=== PATIENT | female | born 1985 | race Caucasian/White ===

== ENCOUNTER 2019-11-30 17:24 | Emergency (ER) | payer MEDICAID, SELFPAY ==
[2019-11-30 17:34] VITALS: BP 129/72; PULSE 74; RESP 14; TEMP 36.5; O2SAT 100; BMI 21.5
--- NOTE | 2019-11-30 17:46 | ED_ITS ---
HPI - General: Chief complaint: Vaginal Bleeding Stated complaint: 4-6 WEEKS PREG, BLEEDING/CRAMPING Time Seen by Provider: 11/30/19 17:45 History of Present Illness: HPI Narrative: Patient is a ,2 34-year-old female is approximately 6 weeks comes with vaginal bleeding and cramping. Patient says symptoms started today. She felt some abdominal cramping and then a gush feeling from vagina. She checked her underwear and found that she had bright red blood. She then is put a heavy pad in and says she has not went through the pad yet today. Denies any passing of clots. She describes the abdominal cramping as episodic Glenn Cortes-like contractions. Denies any fever, chills or bladder symptoms. Associated symptoms: Deny abdominal pain, dysuria, headache(s), nausea or vomiting Review of Systems Const: Denies: fever(s), chills or fatigue Eyes: Denies: change in vision or eye discomfort ENMT: Denies: throat pain, odynophagia, nasal discharge or nasal congestion Card: Denies: chest pain, palpitations, edema, swelling of feet/ankles, dyspnea on exertion or orthopnea Resp: Denies: dyspnea, productive cough or non-productive cough GI: Denies: abdominal pain, nausea, vomiting, diarrhea, constipation or hematochezia : Reports: vaginal bleeding and pelvic pain (contraction like pain); Denies: flank pain, dysuria or hematuria Musc: Denies: neck pain, back pain or extremity swelling Skin/Breast: Denies: rash or new lesions Neuro: Denies: headache(s), numbness in extremities or weakness in extremities Physical Exam Const: COMMON NORMALS: no acute distress, patient oriented x3 and alert GENERAL APPEARANCE: cooperative and comfortable HENMT: COMMON NORMALS: normocephalic HEAD & SCALP: normocephalic MOUTH: Normal oral and palatal mucosa present THROAT: posterior oropharynx normal and uvula midline Eye: COMMON NORMALS: Equal, round and reactive pupils present PUPIL: Yes Equal, round and reactive pupils present Neck/C-Spine: COMMON NORMALS: supple GENERAL: Yes normal visual inspection Resp: COMMON NORMALS: normal respiratory effort, No retractions, No use of accessory muscles and clear to auscultation bilaterally AUSCULTATION: clear to auscultation bilaterally Cardio: COMMON NORMALS: regular rate, regular rhythm, S1 normal heart sound present, S2 normal heart sound present, No gallops present (Cardio), No clicks present (Cardio), No murmurs present (Cardio) and Peripheral pulses 2+ throughout RATE: regular rate RHYTHM: regular rhythm HEART SOUNDS: S1 normal heart sound present and S2 normal heart sound present PERIPHERAL PULSES: Peripheral pulses 2+ throughout GI: COMMON NORMALS: Normal to inspection, nondistended, normoactive bowel sounds present, Soft to palpation, non-tender and no masses PALPATION: Yes Soft to palpation and Yes Tenderness to palpation present (GI) Details: other (lower abdominal/pelvic tenderness-mild) : COMMON NORMALS: Yes no CVA tenderness BLADDER/KIDNEY EXAM: Yes no CVA tenderness Back/Pelvis: COMMON NORMALS: no CVA tenderness Extremity: COMMON NORMALS: normal to inspection and no pedal edema Neuro: COMMON NORMALS: patient oriented x3 and moves all extremities SENSORIUM/ORIENTATION: Yes alert Skin: GENERAL SKIN EXAM: dry skin Course Vital Signs: Vital signs: Vital Signs Temperature 98.0 F 11/30/19 21:11 Pulse Rate 78 11/30/19 21:11 Respiratory Rate 18 11/30/19 21:11 Blood Pressure 128/64 11/30/19 21:11 Pulse Oximetry 98 11/30/19 21:11 MDM - OB/Uterine Contractions MDM Narrative: Medical decision making narrative: Patient is a ,2 34-year-old female says she is approximately 6 weeks comes to the ED with vaginal bleeding abdominal cramping. hCG quant was 60,621. White blood cell count 10.3. Rh type negative. Ultrasound report showed-industrial manufacturing technician performed transvaginal and said cervix was closed. Single live intrauterine fetus. Estimated gestational age by ultrasound is 10 weeks and 6 days. Patient was given a RhoGam shot here in the ED. Patient has a scheduled appointment with Dr. Mayes in December, but I told her to contact his office on Monday morning to discuss ED visit and vaginal bleeding. Return to ED precautions given. Patient understood and agreed with plan. Lab Data: Attestation: I reviewed the patient's lab results. Labs: Lab Results 11/30/19 11/30/19 11/30/19 Range/Units 18:04 18:04 18:04 WBC 10.3 H (4.0-10.0) 10^3/ uL RBC 4.51 (4.1-5.3) 10^6/u L Hgb 13.9 (11.5-15.3) g/dL Hct 41.6 (37.0-47.0) % MCV 92.2 (81-99) fL MCH 30.8 (28.0-34.0) pg MCHC 33.4 (30.0-36.0) g/dL RDW 13.3 (12.1-15.1) % Plt Count 249 (130-400) 10^3/c mm MPV 9.5 (7.4-10.4) fL Neut % (Auto) 74.5 % Lymph % (Auto) 18.7 % Grand % (Auto) 4.6 % Eos % (Auto) 1.5 % Baso % (Auto) 0.4 % Neut # (Auto) 7.70 (1.8-7.7) 10^3/u L Lymph # (Auto) 1.9 (0.8-4.8) 10^3/u L Grand # (Auto) 0.5 (0.2-0.9) 10^3/u L Eos # (Auto) 0.2 (0.0-0.8) 10^3/u L Baso # (Auto) 0.0 (0.0-0.1) 10^3/u L Nucleated RBC % (a uto) 0 % Nucleated RBCs # 0.0 /100WBC Sodium 134 L (136-145) mmol/L Potassium 3.2 L (3.5-5.1) mmol/L Chloride 99 (98-107) mmol/L Carbon Dioxide 24 (22-29) mmol/L Anion Gap 14.2 (5-19) BUN 10 (6-20) mg/dL Creatinine 0.6 (0.5-0.9) mg/dL GFR Calculation 115.9 (90-130) mL/min Glucose 97 (65-115) mg/dL Calculated Osmolal ity 277 L (285-295) mOsm/k g Calcium 8.7 (8.5-10.5) mg/dL Total Bilirubin 0.2 (0.15-1.2) mg/dL AST 17 (0-32) U/L ALT 18 (0-33) U/L Alkaline Phosphata se 47 (35-105) IU/L Total Protein 7.0 (6.6-8.7) g/dL Albumin 4.6 (3.5-5.2) g/dL Globulin 2.4 (1.3-4.6) g/dL Ser , [place] 99187.00 mIU/mL Urine Color (Yellow) Urine Appearance (CLEAR) Urine pH (5-7) Ur Specific Gravit y (1.005-1.030) Urine Protein (Negative) Urine Glucose (UA) (Normal) Urine Ketones (Negative) Urine Blood (Negative) Urine Nitrate (Negative) Urine Bilirubin (Negative) Urine Urobilinogen (Negative) mg/dL Ur Leukocyte Lucille ase (Negative) Urine RBC (0-2) /hpf Urine WBC (0-5) /hpf Ur Squamous Epith Cells (0-5) /hpf Amorphous Sediment Urine Bacteria (NONE) /hpf Urine Mucus /hpf Blood Type A Negative Rho(D) Type Negative Antibody Screen Negative 11/30/19 Range/Units 18:30 WBC (4.0-10.0) 10^3/ uL RBC (4.1-5.3) 10^6/u L Hgb (11.5-15.3) g/dL Hct (37.0-47.0) % MCV (81-99) fL MCH (28.0-34.0) pg MCHC (30.0-36.0) g/dL RDW (12.1-15.1) % Plt Count (130-400) 10^3/c mm MPV (7.4-10.4) fL Neut % (Auto) % Lymph % (Auto) % Grand % (Auto) % Eos % (Auto) % Baso % (Auto) % Neut # (Auto) (1.8-7.7) 10^3/u L Lymph # (Auto) (0.8-4.8) 10^3/u L Grand # (Auto) (0.2-0.9) 10^3/u L Eos # (Auto) (0.0-0.8) 10^3/u L Baso # (Auto) (0.0-0.1) 10^3/u L Nucleated RBC % (a uto) % Nucleated RBCs # /100WBC Sodium (136-145) mmol/L Potassium (3.5-5.1) mmol/L Chloride (98-107) mmol/L Carbon Dioxide (22-29) mmol/L Anion Gap (5-19) BUN (6-20) mg/dL Creatinine (0.5-0.9) mg/dL GFR Calculation (90-130) mL/min Glucose (65-115) mg/dL Calculated Osmolal ity (285-295) mOsm/k g Calcium (8.5-10.5) mg/dL Total Bilirubin (0.15-1.2) mg/dL AST (0-32) U/L ALT (0-33) U/L Alkaline Phosphata se (35-105) IU/L Total Protein (6.6-8.7) g/dL Albumin (3.5-5.2) g/dL Globulin (1.3-4.6) g/dL Ser , Gini i-Qnt mIU/mL Urine Color Yellow (Yellow) Urine Appearance Clear (CLEAR) Urine pH 6.5 (5-7) Ur Specific Gravit y 1.015 (1.005-1.030) Urine Protein Neg (Negative) Urine Glucose (UA) Norm (Normal) Urine Ketones Negative (Negative) Urine Blood 2+ H (Negative) Urine Nitrate Negative (Negative) Urine Bilirubin Neg (Negative) Urine Urobilinogen Norm (Negative) mg/dL Ur Leukocyte Lucille ase Negative (Negative) Urine RBC 25-40 H (0-2) /hpf Urine WBC Rare (0-5) /hpf Ur Squamous Epith Cells 0-4 H (0-5) /hpf Amorphous Sediment Not Reportable Urine Bacteria Trace (NONE) /hpf Urine Mucus 1+ /hpf Blood Type Rho(D) Type Antibody Screen Imaging Data^: US OB: Attestation: I personally reviewed and interpreted this imaging study as follows: My impression: Ultrasound prelim report.--Cervix is closed and is an intrauterine that appears healthy with heart rate around 150. Radiologist's impression: [address] [address] Ultrasound Report Signed Patient: Berna Wilks Unit #: [id number] : 1985 Age/Sex: 34 / F ADM Date: 11/30/19 Loc: ER Room/Bed: Attending Dr: Ordering Provider/Ordering MD: David Rivas Date of Service: 11/30/19 Procedure(s): US OB lmt with transvaginal Accession Number(s): [id number] Report Number: [id number] PROCEDURE INFORMATION: Exam: US , Limited Exam date and time: 11/30/2019 6:55 PM Age: 34 years old Clinical indication: Lmp or gestational age (in weeks): 10 w 6 day; Other: Bleeding; ; Patient HX: Rh neg; Additional info: Preg w/ vaginal bleeding and cramping TECHNIQUE: Imaging protocol: Real-time ultrasound of the maternal uterus with image documentation. Exam focused on the clinical indication. COMPARISON: US OB Limited [id number] 09/29/2018 2:09 PM FINDINGS: Gestation: Intrauterine gestation. heart rate: heart rate is 153 bpm. BIOMETRY: Gestational age (AUA): EGA based on ultrasound is 10 weeks and 6 days. Estimated due date (AUA): [place]-rump length is 4.0 cm with an SARAN of 06/21/2020. US/US OB lmt with transvaginal IMPRESSION: Single live intrauterine fetus. Estimated gestational age by ultrasound is 10 weeks and 6 days. Dictated By: Cary Medina MD Signed By: Cary Medina MD Signed Date/Time: 11/30/191909 DD/ 08 Discharge Plan Discharge Patient Disposition: Home Clinical Impression: Vaginal bleeding in Condition: Stable Discharge Orders: Discharge Order (Routine); Ordered 11/30/19 Ordered By: David Rivas Referrals: Jordan Mayes MD [Family Provider] - Discharge Diet: Regular Discharge Activity: Increase activity as tolerated Patient Instructions: (ED), Diet (GEN) Activity Restrictions/Additional Instructions: Follow-up with Dr. Mayes within the next week for reevaluation. Return to the ER or your medical provider if condition worsens. Please read and understand discharge instructions. If any questions, please ask. Discharge Date/Time: 11/30/19 21:11 Coding Level of Care Code ED Dramatic Reader for Chg Fwd Exam Comprehensive
--- NOTE | 2019-11-30 17:58 | USR_ITS ---
PROCEDURE INFORMATION: Exam: US , Limited Exam date and time: 11/30/2019 6:55 PM Age: 34 years old Clinical indication: Lmp or gestational age (in weeks): 10 w 6 day; Other: Bleeding; ; Patient HX: Rh neg; Additional info: Preg w/ vaginal bleeding and cramping TECHNIQUE: Imaging protocol: Real-time ultrasound of the maternal uterus with image documentation. Exam focused on the clinical indication. COMPARISON: US OB Limited [id number] 09/29/2018 2:09 PM FINDINGS: Gestation: Intrauterine gestation. heart rate: heart rate is 153 bpm. BIOMETRY: Gestational age (AUA): EGA based on ultrasound is 10 weeks and 6 days. Estimated due date (AUA): [place]-rump length is 4.0 cm with an SARAN of 06/21/2020. US/US OB lmt with transvaginal IMPRESSION: Single live intrauterine fetus. Estimated gestational age by ultrasound is 10 weeks and 6 days.
[2019-11-30 18:25] LABS: Basophils % 0.4 %; Eosinophils # 0.2 10^3/uL (0.0-0.8); Eosinophils % 1.5 %; Hematocrit 41.6 % (37.0-47.0); Hemoglobin 13.9 g/dL (11.5-15.3); Lymphocytes # 1.9 10^3/uL (0.8-4.8); Lymphocytes % 18.7 %; Mean Corpuscular HGB Conc 33.4 g/dL (30.0-36.0); Mean Corpuscular Hemoglobin 30.8 pg (28.0-34.0); Mean Corpuscular Volume 92.2 fL (81-99); Mean Platelet Volume 9.5 fL (7.4-10.4); Monocytes # 0.5 10^3/uL (0.2-0.9); Monocytes % 4.6 %; Neutrophils % 74.5 %; Nucleated Red Blood Cells % 0 %; Platelet Count 249 10^3/cmm (130-400); Red Blood Count 4.51 10^6/uL (4.1-5.3); Red Cell Distribution Width 13.3 % (12.1-15.1); White Blood Count 10.3 10^3/uL (4.0-10.0)
[2019-11-30] MEDS: sodium chloride 0.9% 1,000 ML 999 ML IV (18:41)
[2019-11-30 18:43] VITALS: RESP 18
[2019-11-30 19:04] LABS: Alanine Aminotransferase 18 U/L (0-33); Albumin Level 4.6 g/dL (3.5-5.2); Alkaline Phosphatase 47 IU/L (35-105); Anion Gap 14.2 (5-19); Aspartate Amino Transferase 17 U/L (0-32); Blood Urea Nitrogen 10 mg/dL (6-20); Calcium 8.7 mg/dL (8.5-10.5); Carbon Dioxide 24 mmol/L (22-29); Chloride 99 mmol/L (98-107); Globulin 2.4 g/dL (1.3-4.6); Glomerular Filtration Rate 115.9 mL/min (90-130); Glucose 97 mg/dL (65-115); Osmolality Calculated 277 mOsm/kg (285-295); Potassium 3.2 mmol/L (3.5-5.1); Sodium 134 mmol/L (136-145); Total Bilirubin 0.2 mg/dL (0.15-1.2)
[2019-11-30 19:20] LABS: Bilirubin Urine Neg (Negative); Blood Urine 2+ (Negative); Glucose Urine UA Norm (Normal); Ketones Urine Negative (Negative); Leukocyte Esterase Urine Negative (Negative); Nitrate Urine Negative (Negative); Protein Urine Neg (Negative); Specific Gravity, Urine 1.015 (1.005-1.030); Urine Appearance Clear (CLEAR); Urine Color Yellow (Yellow); Urobilinogen Urine Norm (Negative); pH Urine 6.5 (5-7)
[2019-11-30 19:29] LABS: RBC Urine 25-40 /hpf (0-2); Squamous Epithelial Cell Urine 0-4 /hpf (0-5); WBC Urine RARE /hpf (0-5)
[2019-11-30 19:30] LABS: Add Urine Culture? Yes; Bacteria Urine TRACE /hpf; Mucus Urine 1+ /hpf
[2019-11-30 21:08] VITALS: BP 128/64; PULSE 78; RESP 18; TEMP 36.7; O2SAT 98
[2019-11-30 21:11] VITALS: BP 128/64; PULSE 78; RESP 18; TEMP 36.7; O2SAT 98
== END 2019-11-30 21:11 | disposition home or self-care (01) ==
PROVIDERS: Emergency Provider Physician Assistant; Family Provider Family Medicine
DX: O46.91 Antepartum hemorrhage, unspecified, first trimester (principal); Z3A.10 10 weeks gestation of pregnancy
CPT/HCPCS: 12345; 36430; 76815; 76817; 80053; 81001; 84702; 85025; 86850; 86900; 87086; 90384; 96360; 99283; J7030

== ENCOUNTER 2020-01-12 19:26 | Emergency (ER) | payer MEDICAID, SELFPAY ==
[2020-01-12 19:33] VITALS: BP 135/98; PULSE 82; RESP 14; TEMP 36.3; O2SAT 100; BMI 21.4
--- NOTE | 2020-01-12 19:40 | W.ED.ABDPA2 ---
HPI - Abdominal Pain General: Chief Complaint: Abdominal Pain Stated Complaint: 3months preg. severe abdominal pain Time Seen by Provider: 01/12/20 19:32 Source: patient Mode of arrival: ambulatory Limitations: no limitations History of Present Illness: HPI narrative: Crystal 34-year-old female is roughly 13 weeks states she been having lower abdominal pain over the last 2 days it is severe tonight. States it is in her left lower quadrant. She denies any vaginal discharge or bleeding. She denies any worsening or improving factors. She had no nausea or vomiting. She denies any right lower quadrant abdominal pain states on her left lower quadrant. MD elicited complaint: abdominal pain Onset (ago): day(s) Pain Consistency: constant Location: LLQ Quality: stabbing Radiation: none Associated Symptoms: Denies chills, dysuria and fever(s) Review of Systems Const: Denies: fever(s), chills, body aches or change in appetite Eyes: Denies: blurry vision or eye discomfort ENMT: Denies: throat pain or dental pain Card: Denies: chest pain Resp: Denies: dyspnea GI: Reports: abdominal pain : Denies: dysuria Musc: Denies: neck pain or back pain Skin/Breast: Denies: rash Neuro: Denies: headache(s) Psych: Denies: depression Dixon/Lymph: Denies: easy bruising All/Imm: Denies: urticaria Physical Exam Const: COMMON NORMALS: patient oriented x3 and healthy appearing GENERAL APPEARANCE: in distress HENMT: COMMON NORMALS: normocephalic and atraumatic HEAD & SCALP: normocephalic and atraumatic Eye: COMMON NORMALS: Equal, round and reactive pupils present and EOMs intact bilaterally PUPIL: Yes Equal, round and reactive pupils present Neck/C-Spine: COMMON NORMALS: full ROM and supple Chest: COMMONS NORMALS: normal inspection of the chest and normal palpation of entire chest wall Resp: COMMON NORMALS: normal respiratory effort, No retractions, No use of accessory muscles and clear to auscultation bilaterally AUSCULTATION: clear to auscultation bilaterally Cardio: COMMON NORMALS: regular rate, regular rhythm and No murmurs present (Cardio) RATE: regular rate RHYTHM: regular rhythm GI: COMMON NORMALS: Normal to inspection, nondistended, normoactive bowel sounds present and no masses PALPATION: Yes Tenderness to palpation present (GI) Details: LLQ and Yes Guarding due to palpation present (GI) OTHER: gravid uterus Extremity: COMMON NORMALS: normal to inspection and full ROM Neuro: COMMON NORMALS: patient oriented x3, moves all extremities and no focal motor deficits Psych: COMMON NORMALS: mental status grossly normal, Normal thought process present and cooperative THOUGHT PROCESS: Normal thought process present Skin: COMMON NORMALS: no rashes or lesions noted and no wounds GENERAL SKIN EXAM: no rashes or lesions noted Course Vital Signs: Vital signs: Vital Signs Temperature 97.3 F L 01/12/20 19:33 Pulse Rate 74 01/12/20 23:06 Respiratory Rate 18 01/12/20 23:06 Blood Pressure 121/75 01/12/20 23:06 Pulse Oximetry 100 01/12/20 23:06 MDM - Abdominal Pain MDM Narrative: Medical decision making narrative: Uma presents here with abdominal pain and ultrasound showed hydronephrosis possibly has a kidney stone she has had a history of kidney stones. We will place her on pain meds along with Reglan. We will have her follow-up with urology with Luis A. She is return if worsening. She understands agrees to plan. Lab Data: Labs: Lab Results 01/12/20 01/12/20 01/12/20 Range/Units 19:45 19:45 23:00 WBC 11.0 H (4.0-10.0) 10^3/ uL RBC 4.21 (4.1-5.3) 10^6/u L Hgb 13.4 (11.5-15.3) g/dL Hct 39.4 (37.0-47.0) % MCV 93.6 (81-99) fL MCH 31.8 (28.0-34.0) pg MCHC 34.0 (30.0-36.0) g/dL RDW 13.5 (12.1-15.1) % Plt Count 227 (130-400) 10^3/c mm MPV 9.8 (7.4-10.4) fL Neut % (Auto) 74.6 % Lymph % (Auto) 16.6 % [place] % (Auto) 6.5 % Eos % (Auto) 1.4 % Baso % (Auto) 0.5 % Neut # (Auto) 8.21 H (1.8-7.7) 10^3/u L Lymph # (Auto) 1.8 (0.8-4.8) 10^3/u L [place] # (Auto) 0.7 (0.2-0.9) 10^3/u L Eos # (Auto) 0.2 (0.0-0.8) 10^3/u L Baso # (Auto) 0.1 (0.0-0.1) 10^3/u L Nucleated RBC % (a uto) 0 % Nucleated RBCs # 0.0 /100WBC Sodium 138 (136-145) mmol/L Potassium 3.8 (3.5-5.1) mmol/L Chloride 101 (98-107) mmol/L Carbon Dioxide 25 (22-29) mmol/L Anion Gap 15.8 (5-19) BUN 13 (6-20) mg/dL Creatinine 0.8 (0.5-0.9) mg/dL GFR Calculation 83.1 L (90-130) mL/min Glucose 72 (65-115) mg/dL Calculated Osmolal ity 285 (285-295) mOsm/k g Calcium 9.3 (8.5-10.5) mg/dL Total Bilirubin 0.2 (0.15-1.2) mg/dL AST 15 (0-32) U/L ALT 15 (0-33) U/L Alkaline Phosphata se 55 (35-105) IU/L Total Protein 7.0 (6.6-8.7) g/dL Albumin 4.2 (3.5-5.2) g/dL Globulin 2.8 (1.3-4.6) g/dL Lipase 29 (13-60) U/L Urine Color Yellow (Yellow) Urine Appearance Clear (CLEAR) Urine pH 7 (5-7) Ur Specific Gravit y 1.005 (1.005-1.030) Urine Protein Neg (Negative) Urine Glucose (UA) Norm (Normal) Urine Ketones 1+ H (Negative) Urine Blood 3+ H (Negative) Urine Nitrate Negative (Negative) Urine Bilirubin Neg (Negative) Urine Urobilinogen Norm (Negative) mg/dL Ur Leukocyte Lucille ase Negative (Negative) Urine RBC 15-25 H (0-2) /hpf Urine WBC 0-4 H (0-5) /hpf Ur Squamous Epith Cells 25-40 H (0-5) /hpf Amorphous Sediment Not Reportable Urine Bacteria Trace (NONE) /hpf Imaging Data ^: US: Radiologist's impression: [address] [address] Ultrasound Report Signed Patient: Berna Wilks Unit #: [id number] : 1985 Age/Sex: 34 / F ADM Date: 01/12/20 Loc: ER Room/Bed: Attending Dr: Ordering Provider/Ordering MD: Soy Cheung MD Date of Service: 01/12/20 Procedure(s): US abdomen complete* [id number] Accession Number(s): [id number] Report Number: [id number] PROCEDURE INFORMATION: Exam: US Abdomen Complete Exam date and time: 01/12/2020 9:09 PM Age: 34 years old Clinical indication: Abdominal pain; ; Additional info: Abd pain TECHNIQUE: Imaging protocol: Real-time ultrasound of the abdomen with image documentation. COMPARISON: US Renal Kidney Structu* [id number] 09/29/2018 1:56 PM FINDINGS: Liver: Normal. No mass. Gallbladder: Normal. No gallstones. There is no gallbladder wall thickening. Common bile duct: Normal. No stones. No dilation. Pancreas: Visualized pancreas is unremarkable. Right kidney: Severe right hydronephrosis and hydroureter without obstructing lesion seen. Left kidney: Mild left kidney hydronephrosis without obstructing lesion seen. Spleen: Normal. No splenomegaly. Aorta: Normal. No aneurysm. Inferior vena cava: Normal. US/US abdomen complete* [id number] IMPRESSION: 1. Severe right hydronephrosis and hydroureter without obstructing lesion seen. 2. Mild left kidney hydronephrosis without obstructing lesion seen. Discharge Plan Discharge Patient Disposition: Home Clinical Impression: Abdominal pain affecting Hydronephrosis Qualifiers: Hydronephrosis type: unspecified Qualified Code(s): N13.30 - Unspecified hydronephrosis Condition: Stable Prescriptions: [place] 5-325 mg tablet 1 tab PO Q6H PRN (Reason: pain) Qty: 14 RF: 0 Reglan 10 mg tablet 10 mg PO Q6H PRN (Reason: nausea and vomiting) Qty: 20 RF: 0 Discharge Orders: Discharge Order (Routine); Ordered 01/13/20 Ordered By: Soy Cheung Referrals: Mariano Gunn MD [Physician] - 1-3 days Discharge Diet: Advance as tolerated Discharge Activity: Resume usual activity Patient Instructions: Abdominal Pain (ED) Coding Level of Care Code ED Principal Statistical Programmer for Chg Fwd Exam Comprehensive
[2020-01-12 19:56] VITALS: RESP 16; O2SAT 99
[2020-01-12] MEDS: HYDROmorphone 1 mg/mL INJ 1 mL IVP (19:56)
[2020-01-12] MEDS: ondansetron 2 mg/ML SDV 2 mL 4 MG IVP (19:56)
[2020-01-12 19:59] LABS: Basophils # 0.1 10^3/uL (0.0-0.1); Basophils % 0.5 %; Eosinophils # 0.2 10^3/uL (0.0-0.8); Eosinophils % 1.4 %; Hematocrit 39.4 % (37.0-47.0); Hemoglobin 13.4 g/dL (11.5-15.3); Lymphocytes # 1.8 10^3/uL (0.8-4.8); Lymphocytes % 16.6 %; Mean Corpuscular Hemoglobin 31.8 pg (28.0-34.0); Mean Corpuscular Volume 93.6 fL (81-99); Mean Platelet Volume 9.8 fL (7.4-10.4); Monocytes # 0.7 10^3/uL (0.2-0.9); Monocytes % 6.5 %; Neutrophils # 8.21 10^3/uL (1.8-7.7); Neutrophils % 74.6 %; Nucleated Red Blood Cells % 0 %; Platelet Count 227 10^3/cmm (130-400); Red Blood Count 4.21 10^6/uL (4.1-5.3); Red Cell Distribution Width 13.5 % (12.1-15.1)
[2020-01-12 20:09] LABS: Alanine Aminotransferase 15 U/L (0-33); Albumin Level 4.2 g/dL (3.5-5.2); Alkaline Phosphatase 55 IU/L (35-105); Anion Gap 15.8 (5-19); Aspartate Amino Transferase 15 U/L (0-32); Blood Urea Nitrogen 13 mg/dL (6-20); Calcium 9.3 mg/dL (8.5-10.5); Carbon Dioxide 25 mmol/L (22-29); Chloride 101 mmol/L (98-107); Creatinine Clr Calc Pharmacy 88.4525; Globulin 2.8 g/dL (1.3-4.6); Glomerular Filtration Rate 83.1 mL/min (90-130); Glucose 72 mg/dL (65-115); Lipase 29 U/L (13-60); Osmolality Calculated 285 mOsm/kg (285-295); Potassium 3.8 mmol/L (3.5-5.1); Sodium 138 mmol/L (136-145); Total Bilirubin 0.2 mg/dL (0.15-1.2)
[2020-01-12 20:58] VITALS: BP 98/50; PULSE 87; RESP 16; O2SAT 99
[2020-01-12] MEDS: sodium chloride 0.9% 1,000 ML 999 ML IV (21:32)
[2020-01-12 21:48] VITALS: BP 107/63; PULSE 78; RESP 16; O2SAT 98
[2020-01-12 23:06] VITALS: BP 121/75; PULSE 74; RESP 18; O2SAT 100
[2020-01-12 23:35] LABS: Add Urine Microscopic? YES; Bilirubin Urine Neg (Negative); Blood Urine 3+ (Negative); Glucose Urine UA Norm (Normal); Ketones Urine 1+ (Negative); Leukocyte Esterase Urine Negative (Negative); Nitrate Urine Negative (Negative); Protein Urine Neg (Negative); Specific Gravity, Urine 1.005 (1.005-1.030); Urine Appearance Clear (CLEAR); Urine Color Yellow (Yellow); Urobilinogen Urine Norm (Negative); pH Urine 7 (5-7)
[2020-01-13 00:14] LABS: Add Urine Culture? No; Bacteria Urine TRACE /hpf; RBC Urine 15-25 /hpf (0-2); Squamous Epithelial Cell Urine 25-40 /hpf (0-5); WBC Urine 0-4 /hpf (0-5)
[2020-01-13 00:16] VITALS: BP 104/57; PULSE 74; RESP 18; O2SAT 96
--- NOTE | 2020-01-13 11:17 | DCPLANNER ---
Addendum entered by Gloria Engle 01/13/20 11:19: Wrong referral was made, the referral was to the office of Dr. Gunn. Patients information will be printed and reviewed, clinic will call patient with appointment information. Original Note: partner alliance manager had message to schedule a follow up appointment for patient with ortho. partner alliance manager called the ortho clinic, spoke with Terri, gave clinic patients information. partner alliance manager was told that patients information would be printed and reviewed. Clinic will call patient with appointment information.
--- NOTE | 2020-01-13 12:06 | DCPLANNER ---
manager mail had message to schedule a follow up appointment for patient with Dr. Gunn. manager mail called the office of Dr. Gunn, spoke with Jessica, gave clinic patients information. manager mail was told that patients information would be printed and reviewed. Clinic will call patient with appointment information.
--- NOTE | 2020-01-15 09:36 | DCPLANNER ---
Patient has a follow up appointment scheduled for Wednesday, January 15, 2020 at 2:[address] Gunn. Clinic will call patient with appointment information.
--- NOTE | 2020-01-24 14:54 | DCPLANNER ---
Patient had a follow up appointment scheduled for 01.15.[address] Gunn - patient did attend appointment.
== END 2020-01-13 00:24 | disposition home or self-care (01) ==
PROVIDERS: Emergency Provider Emergency Medicine
DX: O99.891 Other specified diseases and conditions complicating pregnancy (principal); N13.30 Unspecified hydronephrosis; Z3A.13 13 weeks gestation of pregnancy
CPT/HCPCS: 12345; 76700; 80053; 81001; 83690; 85025; 96361; 96374; 96375; 99283; J1170; J2405; J7030

== ENCOUNTER 2020-03-04 08:08 | Outpatient (CLI) | payer BC, MEDICAID, SELFPAY ==
--- NOTE | 2020-03-04 08:00 | US_ITS ---
WS: [id number] RENAL ULTRASOUND HISTORY: HYDRONEPHROSIS COMPARISON: 01/11/2029 TECHNIQUE: 2-D and color Doppler imaging of the kidney submitted. Right kidney: 14.4 cm x 5.2 cm x 6.7 cm. Enlarged kidney. There is marked dilatation of the renal pelvis. Diffuse thinning of the cortex. Sinc e the study of 07/31/2018 there has been progression of the hydronephrosis and cortical thinning. Left kidney: 11.9 cm x 5.5 cm x 4.9 cm. Normal echogenicity with no hydronephrosis or mass. Aorta: Not visualized. Urinary Bladder: Well-distended bladder. No ureteral jets are identified. US/US renal BI* [id number] IMPRESSION: 1. Severe RIGHT hydronephrosis. Progression of hydronephrosis and cortical thi nning since 09/29/2018. 2. Normal LEFT kidney.
== END 2020-03-04 08:09 | disposition home or self-care (01) ==
LOC: RAD 08:09
PROVIDERS: PCP Family Medicine; Visit Provider Urology
DX: N13.30 Unspecified hydronephrosis (principal)
CPT/HCPCS: 76770; 80048; 81003

== ENCOUNTER 2020-04-21 06:37 | Observation (INO) | payer BC, MEDICAID, SELFPAY ==
[2020-04-20] VITALS (34 sets, daily range): BP systolic 135–154; BP diastolic 71–83; PULSE 77–98; RESP 17–18; TEMP 37–37.1; O2SAT 98–100; BMI 23.2
[2020-04-20] MEDS: morphine 4 mg/mL SDV 1 mL IVP (22:05)
[2020-04-20] MEDS: promethazine 25 mg/mL SDV 1 mL IM (22:06)
--- NOTE | 2020-04-20 22:44 | US_ITS ---
WS: [id number] ULTRASOUND RENAL TECHNIQUE: Ultrasound examination of both kidneys. CLINICAL INFORMATION: LEFT SIDED FLANK PAIN COMPARISON: Ultrasound April 14, 2020 FINDINGS: RIGHT: Echogenicity: Normal. Cortical thickness: cm; Normal. Hydronephrosis: Severe Perinephric fluid: None. Right kidney measures: 13.1 cm x 4.7 cm x 5.7 cm. LEFT: Echogenicity: Normal. Cortical thickness: cm; Normal. Hydronephrosis: Mild Perinephric fluid: None. Left kidney measures: 13.4 cm x 6.0 cm x 5.5 cm. Normal visualized aorta.. Distended bladder. US/US renal BI* [id number] IMPRESSION: 1. Severe right hydronephrosis. Dilated right renal pelvis. 2. Mild left hydronephrosis is new from previous.
[2020-04-20 22:51] LABS: Basophils % 0.2 %; Eosinophils # 0.2 10^3/uL (0.0-0.8); Eosinophils % 0.9 %; Hematocrit 36.2 % (37.0-47.0); Hemoglobin 11.9 g/dL (11.5-15.3); Lymphocytes # 1.4 10^3/uL (0.8-4.8); Lymphocytes % 8.3 %; Mean Corpuscular HGB Conc 32.9 g/dL (30.0-36.0); Mean Corpuscular Hemoglobin 30.7 pg (28.0-34.0); Mean Corpuscular Volume 93.3 fL (81-99); Mean Platelet Volume 10.6 fL (7.4-10.4); Monocytes # 1.1 10^3/uL (0.2-0.9); Monocytes % 6.5 %; Neutrophils # 13.82 10^3/uL (1.8-7.7); Nucleated Red Blood Cells % 0 %; Platelet Count 196 10^3/cmm (130-400); Red Blood Count 3.88 10^6/uL (4.1-5.3); Red Cell Distribution Width 13.8 % (12.1-15.1); White Blood Count 16.7 10^3/uL (4.0-10.0)
[2020-04-20 22:58] LABS: Bilirubin Urine Neg (Negative); Blood Urine 3+ (Negative); Glucose Urine UA Norm (Normal); Ketones Urine Negative (Negative); Nitrate Urine Negative (Negative); Protein Urine Neg (Negative); Specific Gravity, Urine 1.005 (1.005-1.030); Urine Appearance Clear (CLEAR); Urine Color Yellow (Yellow); pH Urine 7 (5-7)
[2020-04-20 22:59] LABS: Add Urine Microscopic? YES; Leukocyte Esterase Urine Trace (Negative); RBC Urine 40-50 /hpf (0-2); Squamous Epithelial Cell Urine 0-4 /hpf (0-5); Urobilinogen Urine Norm (Negative)
[2020-04-20 23:00] LABS: Add Urine Culture? Yes
[2020-04-20] MEDS: sodium chloride 0.9% 1,000 ML 999 ML IV (23:00)
[2020-04-20] MEDS: terbutaline 1 mg/mL INJ 0.25 MG SUBCUT (23:00)
[2020-04-20 23:09] LABS: Alanine Aminotransferase 14 U/L (0-33); Albumin Level 3.7 g/dL (3.5-5.2); Alkaline Phosphatase 98 IU/L (35-105); Blood Urea Nitrogen 8 mg/dL (6-20); Calcium 8.6 mg/dL (8.5-10.5); Carbon Dioxide 22 mmol/L (22-29); Chloride 99 mmol/L (98-107); Globulin 3.4 g/dL (1.3-4.6); Glomerular Filtration Rate 115.9 mL/min (90-130); Glucose 85 mg/dL (65-115); Osmolality Calculated 272 mOsm/kg (285-295); Sodium 132 mmol/L (136-145); Total Bilirubin 0.2 mg/dL (0.15-1.2); Total Protein 7.1 g/dL (6.6-8.7)
[2020-04-20 23:15] LABS: Anion Gap 15.2 (5-19); Aspartate Amino Transferase 23 U/L (0-32); Potassium 4.2 mmol/L (3.5-5.1)
[2020-04-21] VITALS (99 sets, daily range): BP systolic 119–165; BP diastolic 67–96; PULSE 78–113; RESP 16–22; TEMP 36.7–37.4; O2SAT 93–100
[2020-04-21] MEDS: sodium chloride 0.9% 1,000 ML 125 ML IV
[2020-04-21] MEDS: morphine 4 mg/mL SDV 1 mL IVP ×7 (00:42→14:11)
[2020-04-21] MEDS: sodium chlor 0.45% +KCl 20 mEq 20 MEQ/1,000 ML BAG 125 MEQ IV ×3 (00:43→23:16)
[2020-04-21] MEDS: cefTRIAXone 1,000 MG in sodium chloride 0.9% (plus) 50 ML 100 MG IV ×2 (02:11→16:53)
--- NOTE | 2020-04-21 06:37 | PM.HP ---
Providers/Chief Complaint Primary Care Provider: Jordan Mayes MD Chief Complaint: Kidney Pain History of Present Illness Berna Wilks is a 34 year old 7 para 4-0-2-4 at 31 weeks estimated gestational age presented to the hospital last night with intractable pain. The patient has a known history of right hydronephrosis. She has been seeing Dr. Gunn intermittently during her as result. She states that her pain has been getting worse lately but yesterday became so severe that she came into the hospital screaming in pain. Her pain is now more focused on her left side. She had a work-up including lab work, and an ultrasound, and was found to have hydronephrosis bilaterally. She has been on IV morphine to help control her pain. Review of Systems General: Reports: 10 or more systems reviewed and unremarkable except in HPI and below Const: Reports: fatigue; Denies: fever(s) Eyes: Denies: change in vision Card: Denies: chest pain Musc: Reports: back pain Dixon/Lymph: Denies: easy bruising Medications/Allergies Home Medications Medication Instructions Recorded Confirmed Last Taken Type acetaminophen 325 mg capsule 325 mg PO QID PRN 01/15/20 03/04/20 Unknown History prenat.vits,rere,qkb-zuyu-zloxg 1 tab PO DAILY 01/15/20 03/04/20 Unknown History oxycodone-acetaminophen 1 tab PO Q6H PRN #28 tab 04/22/20 Unknown Rx Allergies Allergy/AdvReac Type Severity Reaction Status Date / Time carbamazepine [From Tegretol] Allergy ADR-Seizure Verified 04/21/20 11:20 latex Allergy ALGY-Rash Verified 04/21/20 16:13 methylphenidate Allergy ALGY-Rash Verified 04/21/20 16:13 [From Ritalin] PFSH Acute PFSH: Medical History (Updated 04/21/20 @ 07:39 by Mariano Gunn MD) History of kidney stones Intrauterine Right renal atrophy Urolithiasis Surgical History History of lithotripsy Family History Other CAD (coronary artery disease) Cancer Diabetes Social History Smoking and tobacco status: current every day smoker Alcohol intake: never Adopted: No Caregiver/support person: No Lives independently: No Household members: spouse Marital status: Current occupational status: unemployed Female Reproductive History: : 5 Vitals/I&O/Wt Last Vital Signs Temp 98.3 F 04/21/20 04:12 Pulse 95 04/21/20 04:14 Resp 17 04/21/20 03:42 BP 136/74 04/21/20 04:14 Pulse Ox 99 04/21/20 00:31 04/20/20 04/20/20 04/21/20 14:59 22:59 06:59 Intake Total 1116.667 / 1116.667 Output Total 100 / 100 Balance 1016.667 / 1016.667 Weight last 48 hrs Weight 131 lb Physical Exam Const: COMMON NORMALS: patient oriented x3 and alert HENMT: COMMON NORMALS: moist oral mucous membranes HEAD & SCALP: normal to inspection Chest: COMMONS NORMALS: normal inspection of the chest Resp: COMMON NORMALS: clear to auscultation bilaterally AUSCULTATION: clear to auscultation bilaterally Cardio: COMMON NORMALS: regular rate and regular rhythm RATE: regular rate RHYTHM: regular rhythm GI: INSPECTION: Yes normal to inspection and Yes other (Gravid) PALPATION: Yes Tenderness to palpation present (GI) (There is generalized tenderness notedBilaterally.. It is most severe in th) and Yes Guarding due to palpation present (GI) Extremity: COMMON NORMALS: normal to inspection GENERAL: Yes edema (Trace) Neuro: COMMON NORMALS: patient oriented x3, moves all extremities and no sensory deficits noted SENSORIUM/ORIENTATION: Yes alert Psych: COMMON NORMALS: mental status grossly normal Skin: COMMON NORMALS: no rashes or lesions noted GENERAL SKIN EXAM: no rashes or lesions noted Data : 04/20/20 21:55 04/20/20 21:55 US: My impression: Hydronephrosis noted bilaterally. With the left being worse than last time. A&P Assessment and plan (1) hydronephrosis during in third trimester, antepartum: We will order an ultrasound, then probably an IVP. I will consult Dr. Gunn to consider stent placement if we do see that there is obstruction. Given the severity of her symptoms, that is probable. Status: Acute (2) Hydronephrosis: Status: Acute Qualifiers: Hydronephrosis type: unspecified Qualified Code(s): N13.30 - Unspecified hydronephrosis (3) Intrauterine : Status: Acute Attestations Medical Necessity Statement*: Currently the patient is unable to tolerate her pain without IV medication. Dr. Gunn been consulted. We will further evaluate the patient's condition and length of her hospitalization be dictated by appropriate inventions and by pain control. A 3 shot IVP KUB with a 1 hour post contrast film. Dr. Gunn will then determine if further films are needed to better assess potential interventions. 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
--- NOTE | 2020-04-21 06:57 | XR_ITS ---
WS: [id number] INDICATION: Hydronephrosis. Patient is 31 weeks . TECHNIQUE: IVP with imaging 0 minutes, 10 minutes, 20 minutes, at 1 hour. 100 cc IV contrast adminis tered FINDINGS: Comparison prior ultrasounds 04/20 and 04/14/2020. Supervisor Production imaging demonstrates fetus in the lower abdomen and pelvis. Normal bowel gas pattern. Delayed bilateral nephrograms are seen at 10 and 20 minutes with advanced right and mild left hydrone phrosis. No significant ureteral emptying at 20 minutes or one-hour. Retained contrast at 1 hour with in the collecting systems bilaterally. No significant ureteral or bladder opacification. XR/XR IVP infus/drip/bolus* [id number] IMPRESSION: 1. Bilateral obstruction with delayed emptying in both kidneys with no signifi cant contrast emptying at 1 hour. 2. Advanced right and mild to moderate left hydronephrosis. 3. No significant contrast visualized in the ureters or bladder.
[2020-04-21] MEDS: ondansetron 2 mg/ML SDV 2 mL 4 MG IVP (07:21)
--- NOTE | 2020-04-21 07:25 | P.CONIM_ITS ---
Providers/Reason For Consult Consulting Physican/Specialty*: Urology/Gunn Reason for Consult*: Left renal colic, 31 weeks Attending Physician: Jordan Mayes MD Primary Care Provider: Jordan Mayes MD History of Present Illness History of Present Illness Berna Wilks is a 34 year old female and roughly 31 weeks who was admitted for refractory left renal colicky pain. She is a known stone former with history of prior ureteral obstruction during p regnancy requiring emergency stenting and ureteroscopy after ESWL to the stent to treat any encrustation at time of intraoperative stent removal. The right ureteral stone was confirmed to have passed via that ureteroscopy. She has many children and had planned after that procedure have a tubal ligation but it was postponed due to Covid and she became again. I saw her in January 2020 with increasing left-sided flank pain and at that time she was approximately 17 weeks . Ultrasound showed severe right hydronephrosis and hydroureter with marked atrophy of the kidney which was different from her previous imaging in 2018. She also demonstrated mild left hydronephrosis. The progression of her hydronephrosis and atrophy on the right side was a surprise with etiology unclear. Because of the effect of functional solitary kidney status or release severely diminished right renal function status and the new left sided hydronephrosis she was offered a stent on the left side for renal function sparing. The merits and risks associated with that were thoroughly discussed. Ultimately she chose to plate conservatively because her symptoms were improved. She presented back to the OB department last night with refractory intractable pain on the left side. It has been very difficult to control her pain. No evidence of infection. Work-up: UA: 40-50 RBCs, 10-15 white cells, 0-4 squamous epithelial cells, nitrite negative. Renal ultrasound: Increased left hydronephrosis. No change in severely hydronephrotic right kidney with severe atrophy of the parenchyma. CBC: White count 16.7, hemoglobin 11.9. CMP: Creatinine 0.6, sodium 132, potassium 4.2. Normal liver functions Based on all of the above significant concerns it was recommended to proceed with imaging as follows: 1. Single shot KUB followed by contrast injection for IVP 2. Delayed 1 hour film, single shot 3. Further films as needed. The hope would be that if she has a ureteral calculus and it is distal that it can be treated safely in order to reduce her stent time for the remainder of her . I explained all the above to the patient and she was willing to proceed. We will keep her n.p.o. and plan for stent placement at least later today after further elucidation of the underlying issues. UPDATE: Drafter Topographical film showed a large calcification in the area of the left mid ureter over the sacrum. Could not say for sure. 1 hour film after contrast injection demonstrated some filling of the calyceal system on the left but no obvious ureteral filling. The right side was as expected very dilated with marked decreased parenchyma compared to previous films and 2019. A 3-hour film (roughly) showed filling of the ureter but not to the level of obstruction. The calcification did appear to be more in line with the ureter on that film but could not be definitively stated as intraluminal. Requested additional film at approximately 3 PM. Based on the degree of obstruction have recommended cystoscopy and stent placement this afternoon around 4-4:30 PM. If the delayed images show a calcification rather than in the mid ureter, located in the distal ureter then will make an attempt at definitively treating the stone. We will also review again the possibility of bilateral ureteral stenting given the severe dilation on the right side. Based on the most recent film there is an appearance of a RIGHT UPJ obstruction type configuration. We also reviewed the possibility that if access cannot be obtained on the left side from a retrograde fashion she would have to be transferred to tertiary center with percutaneous services available. While I believe that risk is low it is certainly possible. On her previous stenting during we reviewed the same issues. She expressed understanding. She has given informed consent to proceed. Final delayed image confirmed tortuous dilated left ureter down to the level of the calcification presumed to be in the ureter at the sacral inlet. Final image on the right kidney shows what appears to be likely a ureteropelvic junction obstruction as the source of blockage. She has a hugely dilated renal pelvis and on at least one of the films what appears to be some contrast in a fairly normal-appearing ureter below that. Review of Systems Const: Denies: fever(s) or chills Eyes: Denies: change in vision ENMT: Denies: throat pain Card: Denies: chest pain or palpitations Resp: Denies: dyspnea or productive cough GI: Reports: abdominal pain and nausea : Reports: flank pain; Denies: difficulty voiding Musc: Denies: joint redness or joint warmth Skin/Breast: Denies: rash Neuro: Denies: confusion or Slurred speech present Psych: Reports: anxiety (Severe and related to her pain.); Denies: memory loss Endo: Denies: flushing Dixon/Lymph: Denies: easy bruising or easy bleeding All/Imm: Denies: urticaria Meds/Allergies Home Medications and Allergies Home Medications Medication Instructions Recorded Confirmed Last Taken Type acetaminophen 325 mg capsule 325 mg PO QID PRN 01/15/20 03/04/20 Unknown History prenat.vits,rere,hhs-qwku-sqapv 1 tab PO DAILY 01/15/20 03/04/20 Unknown History Allergies Allergy/AdvReac Type Severity Reaction Status Date / Time carbamazepine [From Tegretol] Allergy ADR-Seizure Verified 04/21/20 11:20 latex Allergy ALGY-Rash Verified 04/21/20 16:13 methylphenidate Allergy ALGY-Rash Verified 04/21/20 16:13 [From Ritalin] Current Medications Current Medications Generic Name Dose Route Start Last Admin Trade Name Freq PRN Reason Stop Dose Admin Potassium Chloride/Sodium Chloride 20 meq in 1,000 mls @ 125 mls/hr 04/21/20 00:30 04/21/20 00:43 Sodium Chlor 0.45% +Kcl 20 Meq IV 125 mls/hr .Q8H MOLLY Administration Morphine Sulfate 2 - 4 mg 04/21/20 03:49 04/21/20 06:47 Morphine 4 Mg/Ml Sdv 1 Ml IVP 4 mg Q3H PRN Administration PAIN PFSH Acute PFSH: Medical History (Updated 04/21/20 @ 07:39 by Mariano Gunn MD) History of kidney stones Intrauterine Right renal atrophy Urolithiasis Surgical History History of lithotripsy Family History Other CAD (coronary artery disease) Cancer Diabetes Social History Smoking and tobacco status: current every day smoker Alcohol intake: never Adopted: No Caregiver/support person: No Lives independently: No Household members: spouse Marital status: Current occupational status: unemployed Female Reproductive History: : 5 Vitals/I&O/Wt Last Vital Signs Temp 98.3 F 04/21/20 04:12 Pulse 95 04/21/20 04:14 Resp 16 04/21/20 07:11 BP 136/74 04/21/20 04:14 Pulse Ox 99 04/21/20 00:31 04/20/20 04/21/20 04/21/20 22:59 06:59 14:59 Intake Total 1116.667 / 1116.667 Output Total 100 / 100 Balance 1016.667 / 1016.667 Weight last 48 hrs Weight 131 lb Physical Exam Const: COMMON NORMALS: alert and well nourished GENERAL APPEARANCE: cooperative, well kempt, well developed and in distress (From left renal colic) ORIENTATION/CONSCIOUSNESS: not confused HENMT: COMMON NORMALS: normocephalic and atraumatic HEAD & SCALP: normocephalic and atraumatic Eye: COMMON NORMALS: conjunctivae normal and no scleral icterus CONJUNCTIVA: Yes conjunctivae normal Neck/C-Spine: COMMON NORMALS: full ROM GENERAL: Yes normal visual inspection Resp: COMMON NORMALS: normal respiratory effort EFFORT & INSPECTION: No labored and No Actively coughing GI: OTHER: Tender, abdomen. : COMMON NORMALS: Yes normal external appearance and Yes normal appearance of the vagina (Nonspecific discharge.) Extremity: COMMON NORMALS: full ROM Neuro: COMMON NORMALS: no focal motor deficits SENSORIUM/ORIENTATION: Yes a lert Psych: COMMON NORMALS: mental status grossly normal APPEARANCE: Yes grossly normal and Yes well kempt Skin: COMMON NORMALS: no rashes or lesions noted and no jaundice GENERAL SKIN EXAM: no rashes or lesions noted A&P Assessment and plan (1) Renal colic on left side: Intractable left flank pain with increasing left hydronephrosis and patient with history of stones. Complicated by 31-week intrauterine . Further complicated by severe right renal atrophy secondary to obstructive uropathy of unclear etiology. PLAN: 1. Abbreviated IVP (2-3 shots) 2. Stent placement most likely at a minimum. If there appears to be a distal stone the sitter attempt at stone extraction Status: Acute (2) Hydronephrosis: Bilateral. Right associated with chronic renal atrophy and essentially kidney loss Left likely more acute related to stone. Final determination pending Status: Acute Qualifiers: Hydronephrosis type: unspecified Qualified Code(s): N13.30 - Unspecified hydronephrosis (3) hydronephrosis during in third trimester, antepartum: Status: Acute (4) Right renal atrophy: Status: Acute (5) Intrauterine : Status: Acute Consult Attestations Medical Necessity Statement: See attending Time Spent in Patient Care: Total time including bedside, chart review, documentation, review of imaging, discussion with attending greater than 75 minutes. 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
[2020-04-21] MEDS: iohexol 300 mg/mL 50 mL Btl IV (10:19)
--- NOTE | 2020-04-21 11:27 | XR_ITS ---
WS: [id number] ABDOMEN IVP KUB CLINICAL INFORMATION: Renal/ureteral calculi. COMPARISON: Earlier today FINDINGS: 2 hour 45 minute imaging IVP post contrast administration. Contrast is visualized in the bladder. Moderate left hydronephrosis with tortuous dilated left ureter with some emptying of the left collecting system. Progressed right nephrogram with persistent advanced right hydronephrosis. Filling of the large 14 cm cyst/dilated collecting system. Suggestion of slight emptying right kidney. XR/XR KUB [id number] Impression: 1. Persistent advanced right hydronephrosis with progressed nephrogram. Contra st is visualized in the right proximal and mid ureter with slight emptying 2. Filling of the large cyst/dilated collecting system measuring 13.8 x 9.6 cm . 3. Some emptying of the left collecting system with opacification of the left ureter with moderate ureterectasis. Contrast visualized in the bladder.
--- NOTE | 2020-04-21 11:51 | PC.NURSE ---
Call to Dr. Gunn's nurse Leonela to report that the report is back on the pyelogram. Leonela reported she would have Dr. Gunn look at report.
--- NOTE | 2020-04-21 12:10 | PC.NURSE ---
Call to Dr. Mayes to report pt rating pain 10/10 and stating she needs more pain medicine. Reported that pt had 4mg Morphine at 1024. Received orders for another 4 mg Morphine IVP on time.
--- NOTE | 2020-04-21 14:00 | PC.NURSE ---
This nurse gave pt the marker at this time and educated pt to push the button whenever she feels a contraction. Pt stated, I don't know if I can keep up with that, but I'll try. I'm not sure whats pain and whats a contraction anymore.
--- NOTE | 2020-04-21 14:45 | XR_ITS ---
WS: [id number] ABDOMEN IVP KUB CLINICAL INFORMATION: Renal/ureteral calculi. COMPARISON: Earlier today FINDINGS: IVP 4.5 hours. Persistent moderate left and severe right hydronephrosis. Filling of the right kidney cyst/dilated collecting system appears unchanged. Contrast visualized in the left ureter into the pel vis. Additional bladder filling compared to previous. No evidence of right renal emptying XR/XR KUB [id number] Impression: 1. No evidence of right renal emptying compared to previous. 2. Persistent left moderate hydronephrosis with additional filling of the blad ila and contrast visualized in the left ureter.
[2020-04-21] MEDS: terbutaline 1 mg/mL INJ 0.25 MG SUBCUT (15:34)
--- NOTE | 2020-04-21 16:33 | SUR.PHASEI ---
PT UP TO BSC VOIDED YELLOW URINE IN LARGE AMT, PT SHIRT REMOVED FROM UNDER GOWN, IV PATENT OF 1/2 NS WITH 20MEQ OF KCL AT 124M./HR PER PUMP INFUSING. PT LT EARRING TAPED AND RT HAND 2 RINGS TAPED FOR SURGERY. PT ASSISTED BACK TO BED PT GROANS WITH PAIN ON MOVING BUT RELAXED DOWN ONCE IN BED DR SAUCEDA AT BEDSIDE.
--- NOTE | 2020-04-21 16:35 | ANES.PREANE2 ---
Pre-Anesthetic Assessment Pre-Anesthetic Assessment: Height/Weight: Height 1.6 m Weight 59.421 kg Temp Pulse Resp BP Pulse Ox 98.8 F 112 H 20 H 153/90 93 04/21/20 15:55 04/21/20 15:55 04/21/20 15:55 04/21/20 15:55 04/21/20 15:55 Proposed Procedure: Operation Date: 04/21/20 16:30 Proposed Procedures p Cystoscopy(Not Applicable) - Mariano Gunn MD s Ureteral Stent Placement(Not Applicable) - Mariano Gunn MD Was Beta Alcira taken within 24 hours: N/A Last intake: Intake Last Liquid Date 04/20/20 Last Liquid Time 20:45 Last Solid Date 04/20/20 Last Solid Time 14:00 Social: Social History: Tobacco and No alcohol Exam: Pre-Anes Outpt Exam: alert, oriented x 3, clear to auscultation bilaterally and regular rate & rhythm (Rapid/regular) Airway: Submandibular: WNL Cervical ROM: WNL MP: 2 Dentition: Chipped Pulmonary: Pulmonary: None reported CV/HEM: CV/HEM: None reported : Comments: Recurrent renal calculi Hepatic: Hepatic: None reported GI: GI: GERD Metabolic: Metabolic: None reported Musc/skel: Musc/skel: None reported Neuropsych: Neuropsych: Anxiety Anesthetic Plan: ASA status: 2E Anesthesia: General Meds/Allergies Current Medications: Current Medications Generic Name Dose Route Start Last Admin Trade Name Freq PRN Reason Stop Dose Admin Potassium Chloride /Sodium Chloride 20 meq in 1,000 m ls @ 125 mls/hr 04/21/20 00:30 04/21/20 10:47 Sodium Chlor 0.4 5% +Kcl 20 Meq IV 125 mls/hr .Q8H MOLLY Administration Morphine Sulfate 2 - 4 mg 04/21/20 03:49 04/21/20 14:11 Morphine 4 Mg/Ml Sdv 1 Ml IVP 4 mg Q3H PRN Administration PAIN PFSH Anesthesia PFSH: Medical History (Updated 04/21/20 @ 07:39 by Mariano Gunn MD) History of kidney stones Intrauterine Right renal atrophy Urolithiasis Surgical History History of lithotripsy Family History Other CAD (coronary artery disease) Cancer Diabetes Social History Smoking and tobacco status: current every day smoker Alcohol intake: never Adopted: No Caregiver/support person: No Lives independently: No Household members: spouse Marital status: Current occupational status: unemployed Female Reproductive History: : 5 Data Anesthesia CBC & Chem 7: 04/20/20 21:55 04/20/20 21:55 Other Labs: Laboratory Results - last 48 hr 04/20/20 04/20/20 04/20/20 21:55 21:55 21:55 WBC 16.7 H RBC 3.88 L Hgb 11.9 Hct 36.2 L MCV 93.3 MCH 30.7 MCHC 32.9 RDW 13.8 Plt Count 196 MPV 10.6 H Neut % (Auto) 83.0 Lymph % (Auto) 8.3 [place] % (Auto) 6.5 Eos % (Auto) 0.9 Baso % (Auto) 0.2 Neut # (Auto) 13.82 H Lymph # (Auto) 1.4 [place] # (Auto) 1.1 H Eos # (Auto) 0.2 Baso # (Auto) 0.0 Nucleated RBC % (auto) 0 Nucleated RBCs # 0.0 Sodium 132 L Potassium 4.2 Chloride 99 Carbon Dioxide 22 Anion Gap 15.2 BUN 8 Creatinine 0.6 GFR Calculation 115.9 Glucose 85 Calculated Osmolality 272 L Calcium 8.6 Total Bilirubin 0.2 AST 23 ALT 14 Alkaline Phosphatase 98 Total Protein 7.1 Albumin 3.7 Globulin 3.4 Urine Color Yellow Urine Appearance Clear Urine pH 7 Ur Specific [place] 1.005 Urine Protein Neg Urine Glucose (UA) Norm Urine Ketones Negative Urine Blood 3+ H Urine Nitrate Negative Urine Bilirubin Neg Urine Urobilinogen Norm Ur Leukocyte Esterase Trace H Urine RBC 40-50 H Urine WBC 10-15 H Ur Squamous Epith Cells 0-4 H Amorphous Sediment Not Reportable Urine Bacteria None Cardiac Studies: No Data to Display
[2020-04-21] MEDS: sodium chloride 0.9% 1,000 ML 30 ML IV (16:53)
--- NOTE | 2020-04-21 16:56 | SUR.PHASEI ---
LATE ENTRY 1550 PT UP TO CART WITH ASSIST PT C/O OF SEVERE PAIN WITH ANY LT SIDED MOVEMENT AND LT FLANK PAIN, PT AMBULATED WITH ASSIT AND WAS ABLE TO GET ON OR CART. PT HEART TONE RATE WAS 125 BEATS PER MINUTE PRIOR TO TRANSPORT.PT TO OPS 12 AWAKE ALERT
--- NOTE | 2020-04-21 17:08 | SC_ITS ---
WS: [id number] C-arm [facility] for Urology REASON FOR EXAM: surgery FINDINGS: Images are of suboptimal quality. Single AP view of the left side during the procedure demonstrates presumed retrograde ureteral cathet er. Injection of contrast demonstrates mild pelvic caliectasis and probable duplication of the collec ting system. Single AP view of the left side during the procedure shows contrast contrast in a voluminous pelvocal yceal system. A ureteral stent is present. SC/C-[facility] for Urology IMPRESSION: Retrograde urography with limited documentation as above.
--- NOTE | 2020-04-21 17:46 | P.OP_ITS ---
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 Specimens removed/disposition: None Surgeon: Mariano Gunn Anesthesia: General Estimated blood loss: None Urine output: Not measured Complications: None Findings: 1. Guidewire easily bypassed the stone but had some difficulty on the left negotiating the tortuous ureter. Use of open-ended ureteral catheter and zip wire allowed passage of the wire into the kidney, passage of the open-ended ureteral catheter through the tortuous area which straightened out the ureter, and then easy passage of the stent over the normal guidewire that was exchanged with the zip. Stent confirmed to be in good position 2. Easy access to the renal pelvis on the right through the UPJ. Stent in good position. Condition: stable Disposition: PACU Brief History: Mrs. Wilks is a very pleasant 34-year-old white female with a history of complex stone disease. I first met her in 2018 when she was and she had an obstruction in her right kidney requiring emergency stenting and eventually removal of the stent with ureteral view showing no evidence of stone. This hospitalization was preceded by a visit in the office in February when she was having some intermittent left flank pain. Ultrasound at that time at about 17 weeks showed a severely dilated progressively atrophic right kidney much worse than noted in 2019. Most of her pain that was on the other side and she had mild hydronephrosis on that side. She was offered a stent on the right side possibly a stent on the left side versus conservative management and because at that time her pain was better she chose conservative. We did review the possibility of permanent damage to the right kidney given the degree of change that had occurred. Apparently she did well until yesterday when she presented to the OB department in extremis related to left flank pain typical for renal colic. An ultrasound confirmed the severe right hydronephrosis and now significant development of left hydronephrosis since her February ultrasound. Original attempt to just control her pain to give her more time was unsuccessful in doing so and for that reason she underwent a very limited IVP today that ultimately showed what appeared to be a very blown out right collecting system consistent with UPJ obstruction and a dilated left collecting system with tortuous ureter down to a large stone at the sacral level. It was recommended that based on these findings to proceed with bilateral stent placement and not consider ureteroscopy to treat the stone (which was hoped for if the stone was small and located distally). Ureteroscopy possible laser would only be to help facilitate wire passage. Informed consent was obtained Procedure: After urgent evaluation examination and obtaining of informed consent she was taken to the operating suite on 04/21/2020 where general anesthesia was administered without difficulty after appropriate timeout was performed, SCDs confirmed to be functioning, preoperative antibiotics administered, beta-gigi protocol confirmed. Prepped and draped in usual sterile fashion in dorsolithotomy position paying careful attention to avoiding pressure points. 21 [place] cystoscope with 30 degree lens was introduced into urethra meatus and advanced into the bladder which was carefully inspected and found to be normal. No stones were seen. Flexible tip guidewire was then passed up the left ureter and bypassing the area of the stone and then a single shot confirmed the wire located at the tortuous position in the proximal ureter. It could not be easily passed beyond that and for that reason an open-ended ureteral catheter was advanced over the guidewire to about that position but still did not allow easy passage of the wire. The wire was then exchanged for a zip wire which that was easily passed through the opening ureteral stent and up into the upper pole calyx as confirmed with contrast in the system from the previous IVP. This allowed passage of the open- ended ureteral catheter far enough to take the tortuosity out of the ureter. The zip wire was then removed and exchanged for a normal flexible tip guidewire and then the open-ended ureteral catheter was removed and a 7 [place] by 28 cm double-pigtail stent was easily advanced up the ureter over the guidewire through the cystoscope into appropriate position as confirmed via fluoroscopy cystoscopy. Final image showed good curling of the proximal aspect. Attention was then directed to her RIGHT ureter. A flexible tip guidewire was then easily passed up the right ureter into the area suspected to be the renal pelvis and a single shot fluoroscopy on low-dose as before confirm the wire into appropriate position and then a 6 [place] by 28 cm double-pigtail stent was advanced over the guidewire through the cystoscope into appropriate position as confirmed via fluoroscopy and cystoscopy. Stents were confirmed to be draining. Bladder was drained and the procedure completed. She tolerated procedure well without complications and was awakened in the operating room and returned to the recovery room in stable condition with anticipation of transfer back to OB. Clinically she was stable throughout without any untoward events related to pr egnancy or anesthesia. PLANS: 1. Maintain ureteral stents 2. Normally would change the stents at 6 weeks but given her current estimated gestational age it would probably be better to wait until she has delivered and then proceed with more detailed work-up. May require some ESWL to the stents for encrustation potentially.
--- NOTE | 2020-04-21 18:00 | SUR.PHASEI ---
PT AWAKES TO VOICE , PT VERBALLY DENIES PAIN AND NAUSEA, PT DENIES COLD, PT TOOK A COUPLE ICE CHIPS BUT WANTS TO SLEEP PT QUICKLY BACK TO SLEEP VSS.
--- NOTE | 2020-04-21 18:08 | SUR.PHASEI ---
HEART RATE 154 PER Emily FOSTER RN FOUND IN RT LOWER QUAD PT AWAKE ALERT TAKING ICE CHIPS NO DISTRESS NOTED VSS.
--- NOTE | 2020-04-21 18:39 | SUR.PHASEI ---
PT TO FLOOR PT AWAKE AND WALKED TO BED EATING ICE CHIPS VSS.
[2020-04-21] MEDS: famotidine 20 mg Tablet PO (22:07)
[2020-04-21] MEDS: oxyCODONE-APAP 5-325 mg Tablet 2 TAB PO (23:15)
[2020-04-22] VITALS (14 sets, daily range): BP systolic 101–129; BP diastolic 51–68; PULSE 87–102; RESP 14–18; TEMP 36.3–37.6; O2SAT 97–100
[2020-04-22] MEDS: oxyCODONE-APAP 5-325 mg Tablet 2 TAB PO (06:45)
--- NOTE | 2020-04-22 07:04 | P.DS_ITS ---
Discharge Providers GREEN MATERIAL VALUE ADDED ASSESSOR Date of Admission: 04/20/20 21:46 Date of Discharge: 04/22/20 Attending Provider at Admission: Jordan Mayes MD Attending Provider at Discharge: Jordan Mayes MD Consults: Dr. Fred Gunn Primary Care Provider: Jordan Mayes MD Diagnoses at Discharge Discharge Diagnosis (1) Renal colic on left side: Status: Acute (2) Hydronephrosis: Status: Acute Qualifiers: Hydronephrosis type: unspecified Qualified Code(s): N13.30 - Unspecified hydronephrosis (3) hydronephrosis during in third trimester, antepartum: Status: Acute (4) Right renal atrophy: Status: Acute (5) Intrauterine : Status: Acute Reason for Visit Reason for Visit: Kidney Pain Hospital Course Hospital Course The patient presented to the hospital with bilateral severe flank pain. The left was greater than the right. The patient has a known history of hydronephrosis, nephrolithiasis, and ureterolithiasis. The ultrasound confirmed that she did have significant hydronephrosis. An IVP demonstrated obstruction. The patient was in severe pain and required consistent IV morphine to have any level of comfort. Dr. Fred Gunn was consulted. 2 ureteral stents were placed without complications. The patient's post operative course has been unremarkable. She continues to have pain, but it is markedly improved over what it has been. She has not had anything to eat this morning, but assuming that she does well with her meal, and Dr. Gunn is agreeable, she should be going home this morning. Physical Exam Const: COMMON NORMALS: no acute distress and patient oriented x3 GENERAL APPEARANCE: cooperative and well developed HENMT: COMMON NORMALS: normocephalic and moist oral mucous membranes HEAD & SCALP: normocephalic Chest: COMMONS NORMALS: normal inspection of the chest Resp: COMMON NORMALS: normal respiratory effort and clear to auscultation bilaterally AUSCULTATION: clear to auscultation bilaterally Cardio: COMMON NORMALS: regular rate, regular rhythm, No gallops present (Cardio), No murmurs present (Cardio) and No rub (Cardio) RATE: regular rate RHYTHM: regular rhythm : BLADDER/KIDNEY EXAM: Yes CVA tenderness (The patient continues to be tender to palpation across her lower back bilat) Back/Pelvis: GENERAL BACK: Yes CVA tenderness (The patient continues to be tender to palpation across her lower back bilat) CVA tenderness: bilateral Extremity: COMMON NORMALS: normal to inspection Neuro: COMMON NORMALS: patient oriented x3 and no focal motor deficits Skin: COMMON NORMALS: no rashes or lesions noted GENERAL SKIN EXAM: no rashes or lesions noted Discharge Data Data Completed and Pending: Completed Studies During Hospitalization Category Date Time Status XR IVP infus/drip /bolus* [id number] Urge nt Exams 04/21/20 06:57 Completed XR KUB [id number] Rout ine Exams 04/21/20 11:27 Completed XR KUB [id number] Rout ine Exams 04/21/20 14:45 Completed US renal BI* [id number] 0 Stat Ultrasound 04/20/20 22:44 Completed Pending at discharge Category Date Time Status C-arm Fluoroscopy [id number] Routine Exams 04/21/20 17:08 Taken Urine Culture Sta t Lab 04/20/20 21:55 Received Addt'l Data from Hospital Stay: The patient's ultrasound demonstrated bilateral hydronephrosis with cortical thinning on the right side. The IVP demonstrated obstruction. Her CBC demonstrated a white blood count of 16.7 with a hemoglobin of 11.9 and a platelet count of 196. Her metabolic panel was within normal limits with excep tion of a sodium of 132. Her urine demonstrated 3+ occult blood 40-50 red blood cells and 10-15 white blood cells with 0-4 squamous epithelial cells. Urine culture is pending. Vitals: Last Vital Signs Temp 99.7 F H 04/22/20 04:29 Pulse 100 04/22/20 04:29 Resp 17 04/22/20 06:45 BP 129/58 04/22/20 04:29 Pulse Ox 100 04/22/20 04:28 Discharge Plan Discharge Patient Disposition: Home Condition: Stable Prescriptions: New oxycodone-acetaminophen 5-325 mg Tablet 1 tab PO Q6H PRN (Reason: Moderate To Severe Pain) Qty: 28 RF: 0 Continued prenat.vits,rere,ulc-pjbu-oxgdg Tablet 1 tab PO DAILY RF: 0 acetaminophen [Tylenol] 325 mg capsule 325 mg PO QID PRNRF: 0 Discharge Orders: Discharge Order (Routine); Ordered 04/22/20 Ordered By: Jordan Mayes Referrals: Jordan Mayes MD [Primary Care Provider] - 04/29/20 1:15 pm (* Your appointment with Dr. Mayes is on Wednesday April 29, 2020 at 1:15pm) Discharge Diet: Usual diet Discharge Activity: Limit activity as instructed Patient Instructions: Cystoscopy (DC), Pre-eclampsia and Eclampsia (DC), Urethral Stent Placement (DC), Hydronephrosis (DC), OB Discharge Report, OB Food/Drug Interaction Guide, OB Undelivered Discharge Discharge Attestations GREEN MATERIAL VALUE ADDED ASSESSOR Time Spent in Discharge Care*: less than 30 min Coding Level of Care Code Acute Tank Car Inspector for Chg Fwd Exam Comprehensive Diagnoses Renal colic on left side N23 Hydronephrosis N13.30 Hydronephrosis type: unspecified hydronephrosis during in third trimester, antepartum O35.8XX0 Right renal atrophy N26.1 Intrauterine Z34.90
[2020-04-22] MEDS: sodium chlor 0.45% +KCl 20 mEq 20 MEQ/1,000 ML BAG 125 MEQ IV (07:49)
--- NOTE | 2020-04-22 07:49 | ANE.PACU2 ---
Inpatient post-anesthesia follow up: Airway intact: Yes Vital signs: Temperature 99.7 F Pulse Rate 100 Respiratory Rate 17 Blood Pressure 129/58 Pulse Oximetry 100 Oxygen Delivery Me thod [ Room Air Current Rate & Del tyree] Oxygen Delivery Me thod Room Air Oxygen Flow Rate 8 Fraction of Inspir ed Oxygen Hydration adequate: Yes Nausea and vomiting: No Pain level: 4 Mental status: Baseline
== END 2020-04-22 09:30 | disposition home or self-care (01) ==
PROVIDERS: Urology; Admitting Provider Family Medicine; PCP Family Medicine; Visit Provider Family Medicine
PROC: 0TJB8ZZ Inspection of Bladder, Via Natural or Artificial Opening Endoscopic (ICD-10-PCS; CPT 52000; principal; 2020-04-21 16:30)
PROC: (CPT 50605; 2020-04-21 16:30)
DX: O26.893 Other specified pregnancy related conditions, third trimester (principal); Z3A.31 31 weeks gestation of pregnancy; N13.5 Crossing vessel and stricture of ureter without hydronephrosis; N26.1 Atrophy of kidney (terminal); N20.1 Calculus of ureter; N23 Unspecified renal colic; N13.30 Unspecified hydronephrosis; O99.333 Smoking (tobacco) complicating pregnancy, third trimester
CPT/HCPCS: 52332; 12345; 36415; 59025; 74018; 74410; 76000; 76770; 80053; 81001; 85025; 87086; 96360; 96365; 96366; 96372; 96375; 96376; 99211; C2625; G0378; J0696; J2270; J2405; J2550; J3010; J3105; J7030; Q9967

== ENCOUNTER 2020-05-09 09:44 | Emergency (ER) | payer BC, MEDICAID, SELFPAY ==
[2020-05-09 09:59] VITALS: BP 108/66; PULSE 98; RESP 18; TEMP 37.1; O2SAT 98; BMI 23.2
[2020-05-09 10:07] VITALS: BP 108/66; PULSE 95; RESP 18; TEMP 37.1; O2SAT 100
--- NOTE | 2020-05-09 10:18 | ED_ITS ---
HPI - Female Genitourinary General: Chief complaint: Urogenital-Female Stated complaint: KIDNEY STENT OUT OF PLACE Time Seen by Provider: 05/09/20 09:58 History of Present Illness: HPI Narrative: Patient is a 34-week 34-year-old female who comes to the ED with kidney stent complaint. Patient had 2 left ureteral stents placed by Dr. Gunn on April 21. Patient was told that stents are in to remain in place until after she delivers baby. Today she woke up and she went to the bathroom and when she got up she felt like she was still leaking urine. She went to wipe herself with toilet paper and felt a string protruding from her urethra. She denies any pain or discomfort but her bladder consistently leaks now. Denies dysuria, hematuria, vaginal discharge, vaginal bleeding, abdominal pain, fever, chills, nausea/vomiting. Associated symptoms: Deny abdominal pain, headache(s) or nausea Review of Systems Const: Denies: fever(s), chills or fatigue Eyes: Denies: change in vision or eye discomfort ENMT: Denies: throat pain, odynophagia, nasal discharge or nasal congestion Card: Denies: chest pain, palpitations, edema, swelling of feet/ankles, dyspnea on exertion or orthopnea Resp: Denies: dyspnea, productive cough or non-productive cough GI: Denies: abdominal pain, nausea, vomiting, diarrhea, constipation or hematochezia : Reports: other (Ureteral stent string protruding from urethra.); Denies: flank pain, dysuria or hematuria Musc: Denies: neck pain, back pain or extremity swelling Skin/Breast: Denies: rash or new lesions Neuro: Denies: headache(s), numbness in extremities or weakness in extremities PFS ED PFSH: Medical History History of kidney stones Intrauterine Right renal atrophy Urolithiasis Surgical History History of lithotripsy Family History Other CAD (coronary artery disease) Cancer Diabetes Social History Smoking and tobacco status: current every day smoker Alcohol intake: never Adopted: No Caregiver/support person: No Lives independently: No Household members: spouse Marital status: Current occupational status: unemployed Physical Exam Const: COMMON NORMALS: no acute distress, patient oriented x3, healthy appearing and alert GENERAL APPEARANCE: cooperative and comfortable HENMT: COMMON NORMALS: normocephalic HEAD & SCALP: normocephalic MOUTH: Normal oral and palatal mucosa present THROAT: posterior oropharynx normal and uvula midline Neck/C-Spine: COMMON NORMALS: supple GENERAL: Yes normal visual inspection Resp: COMMON NORMALS: normal respiratory effort, No retractions, No use of accessory muscles and clear to auscultation bilaterally AUSCULTATION: clear to auscultation bilaterally Cardio: COMMON NORMALS: regular rate, regular rhythm, S1 normal heart sound present, S2 normal heart sound present, No gallops present (Cardio), No clicks present (Cardio), No murmurs present (Cardio) and Peripheral pulses 2+ throughout RATE: regular rate RHYTHM: regular rhythm HEART SOUNDS: S1 normal heart sound present and S2 normal heart sound present PERIPHERAL PULSES: Peripheral pulses 2+ throughout GI: COMMON NORMALS: Normal to inspection, nondistended, normoactive bowel sounds present, Soft to palpation, non-tender and no masses INSPECTION: Yes gravid abdomen PALPATION: Yes Soft to palpation : COMMON NORMALS: Yes no CVA tenderness BLADDER/KIDNEY EXAM: Yes no CVA tenderness EXTERNAL FEMALE EXAM: Yes other (Patient has visible ureteral stent string protruding from urethra) Back/Pelvis: COMMON NORMALS: no CVA tenderness Extremity: COMMON NORMALS: normal to inspection Neuro: COMMON NORMALS: patient oriented x3 and moves all extremities SENSORIUM/ORIENTATION: Yes alert Skin: GENERAL SKIN EXAM: dry skin Course Vital Signs: Vital signs: Vital Signs Temperature 98.7 F 05/09/20 10:07 Pulse Rate 95 05/09/20 10:07 Respiratory Rate 18 05/09/20 10:07 Blood Pressure 108/66 05/09/20 10:07 Pulse Oximetry 100 05/09/20 10:07 MDM - Female MDM Narrative: Medical decision making narrative: I told patient that since Dr. Gunn is on vacation we do not have a urologist here at [facility] to perform the ureteral stent removal and replacement. I informed that we would have to send her to [place] to get treatment done. Patient says that she has multiple important things going on in the next 2 days at home that she needs to be at home for. I stressed with patient the importance of getting this procedure done and allowing us to transfer her to [place] today. I told her about the increased risk of kidney infection if she does not get ureteral stent fixed. She still decided to go home AGAINST MEDICAL ADVICE. I stressed with patient that is important that if she has any worsening symptoms to return to ED immediately for treatment. Patient understood the risks and signed AMA form. Discharge Plan Discharge Patient Disposition: Left Against Medical Advice Clinical Impression: Displacement of ureteral stent Qualifiers: Encounter type: initial encounter Qualified Code(s): T83.122A - Displacement of indwelling ureteral stent, initial encounter Condition: Stable Prescriptions: No Action prenat.vits,rere,pco-pajk-epmff Tablet 1 tab PO DAILY RF: 0 acetaminophen [Tylenol] 325 mg capsule 325 mg PO QID PRNRF: 0 oxycodone-acetaminophen 5-325 mg Tablet 1 tab PO Q6H PRN (Reason: Moderate To Severe Pain) Qty: 28 RF: 0 Referrals: Jordan Mayes MD [Primary Care Provider] - Activity Restrictions/Additional Instructions: You are leaving AGAINST MEDICAL ADVICE and were advised to be transferred to [place] to get ureteral stent removed and replaced. return to the ED immediately if you have any worsening symptoms such as flank pain, dysuria, vaginal discharge/bleeding, fever, Nausea or vomiting. Coding Level of Care Code ED Commercial Trailer Truck Driver for Sherwin Rivera Exam Comprehensive
== END 2020-05-09 11:45 | disposition left against medical advice (07) ==
PROVIDERS: Emergency Provider Physician Assistant; PCP Family Medicine
DX: O26.893 Other specified pregnancy related conditions, third trimester (principal); T83.122A Displacement of indwelling ureteral stent, initial encounter; O99.333 Smoking (tobacco) complicating pregnancy, third trimester; F17.210 Nicotine dependence, cigarettes, uncomplicated; Z3A.34 34 weeks gestation of pregnancy
CPT/HCPCS: 99281

== ENCOUNTER 2020-05-09 16:25 | Emergency (ER) | payer BC, MEDICAID, SELFPAY ==
[2020-05-09 16:48] VITALS: BP 115/63; PULSE 99; RESP 18; TEMP 37; O2SAT 98; BMI 23.2
--- NOTE | 2020-05-09 17:30 | ED_ITS ---
HPI - Female Genitourinary General: Chief complaint: Urogenital-Female Stated complaint: here this morning, kidney stent out of place Time Seen by Provider: 05/09/20 17:05 Source: patient Mode of arrival: ambulatory Limitations: no limitations History of Present Illness: HPI Narrative: Pleasant 34-year-old female patient presents ambulatory to the emergency department with 1 day onset of ureteral stent protrusion. She reports ureteral stent placed on the left side due to large kidney stones on 04/21/2020. She also reports an additional stent was placed on the right due to, alcoholic kidney . Stents were placed by Dr. Gunn. She reports plan was to remove stents after delivery. She is 34 weeks IUP. She denies abdominal pain fever chills, she reports urinary inco ntinence is her only symptom today. She denies dysuria, hematuria, inability to void. She reports has not identified visible blood in her urine. She denies back pain, lower abdominal pain or vaginal bleeding or discharge. She reports baby has been moving fine, normal . She is 8 para 5 missed AB x2. Living 5. She was seen earlier today and decided to leave as she did not want to be transferred to another facility, had things to do at home . She presents to the emergency department due to need to have stent removed and urinary incontinence. Associated symptoms: Deny abdominal pain, headache(s), nausea or vaginal discharge Review of Systems General: Reports: 10 or more systems reviewed and unremarkable except in HPI and below Const: Denies: fever(s), chills or diaphoresis Eyes: Denies: blurry vision or eye redness ENMT: Denies: throat pain, dental pain or disequilibrium Card: Denies: chest pain, palpitations or irregular heart rhythm Resp: Denies: dyspnea, productive cough, non-productive cough or wheezing GI: Reports: heartburn (requests something for heartburn); Denies: abdominal pain, nausea, vomiting, hematemesis, GI cramping, excessive flatus, pain on defecation or rectal swelling : Reports: dribbling and urinary incontinence; Denies: difficulty voiding, dysuria, urinary frequency, urinary urgency, urinary hesitancy, hematuria, vaginal bleeding, vaginal discharge or change in menstrual flow Musc: Denies: neck pain, back pain, joint pain, joint warmth or joint stiffness Skin/Breast: Denies: rash or pruritus Neuro: Denies: headache(s), weakness in extremities or behavioral changes Psych: Denies: anxiety or depression Dixon/Lymph: Denies: easy bruising PFSH ED PFSH: Medical History History of kidney stones Intrauterine Right renal atrophy Urolithiasis Surgical History History of lithotripsy Family History Other CAD (coronary artery disease) Cancer Diabetes Social History Smoking and tobacco status: current every day smoker Alcohol intake: never Adopted: No Caregiver/support person: No Lives independently: No Household members: spouse Marital status: Current occupational status: unemployed Physical Exam Const: COMMON NORMALS: no acute distress, average body habitus, patient oriented x3, healthy appearing, alert and well nourished EXAM LIMITATIONS: no altered mental status and no physical limitations GENERAL APPEARANCE: cooperative, comfortable, well kempt, well developed and well hydrated NUTRITIONAL APPEARANCE: thin ORIENTATION/CONSCIOUSNESS: Yes awake, Yes oriented to person, Yes oriented to place and Yes oriented to time HENMT: COMMON NORMALS: normocephalic, atraumatic, Normal external nose present and moist oral mucous membranes HEAD & SCALP: normal to inspection, normocephalic and atraumatic NOSE: Normal external nose present MOUTH: Normal oral and palatal mucosa present, lip normal and tongue normal THROAT: posterior oropharynx normal and uvula midline Eye: COMMON NORMALS: Equal, round and reactive pupils present and EOMs intact bilaterally GENERAL EYE: appearance normal, both eyes and all related structures PUPIL: Yes Equal, round and reactive pupils present Neck/C-Spine: COMMON NORMALS: full ROM and no lymphadenopathy GENERAL: Yes normal visual inspection and Yes trachea midline CERVICAL SPINE: Yes cervical ROM normal Lymph: LYMPHATIC: no lymphadenopathy noted Chest: COMMONS NORMALS: normal inspection of the chest and normal palpation of entire chest wall CHEST: No localized rib tenderness with anteroposterior compression Resp: COMMON NORMALS: normal respiratory effort, No retractions, No use of accessory muscles and clear to auscultation bilaterally EFFORT & INSPECTION: Yes able to speak in complete sentences AUSCULTATION: clear to auscultation bilaterally Cardio: COMMON NORMALS: regular rate, regular rhythm, S1 normal heart sound present, S2 normal heart sound present and Peripheral pulses 2+ throughout RATE: regular rate RHYTHM: regular rhythm HEART SOUNDS: S1 normal heart sound present and S2 normal heart sound present PERIPHERAL PULSES: Peripheral pulses 2+ throughout GI: COMMON NORMALS: Normal to inspection, nondistended, normoactive bowel sounds present, Soft to palpation and non-tender INSPECTION: Yes normal to inspection, No abdominal distension, No central obesity, No visible herniation and Yes gravid abdomen AUSCULTATION: Yes normoactive bowel sounds PALPATION: Yes Soft to palpation, No Tenderness to palpation present (GI), No Guarding due to palpation present (GI) and No Rigid due to palpation : COMMON NORMALS: Yes no CVA tenderness BLADDER/KIDNEY EXAM: Yes no CVA tenderness EXTERNAL FEMALE EXAM: Yes other (white string present , extending from the urethra, approximately 3-4 cm) BIMANUAL EXAM - ADNEXA, OTHER: Yes Other (FHT 145-151 strong with movement noted) Back/Pelvis: COMMON NORMALS: no CVA tenderness, thoracic and lumbar spine normal to inspection, no thoracic nor lumbar tenderness, thoraco-lumbar ROM normal and straight leg raise negative bilaterally Extremity: COMMON NORMALS: normal to inspection and capillary refill normal Neuro: COMMON NORMALS: patient oriented x3 and no focal motor deficits SENSORIUM/ORIENTATION: Yes alert, Yes oriented to person, Yes oriented to place and Yes oriented to time Psych: COMMON NORMALS: mental status grossly normal, Normal thought process present and cooperative APPEARANCE: Yes well kempt ACTIVITY/MOTOR BEHAVIOR: Yes appropriate eye contact THOUGHT PROCESS: Normal thought process present Skin: COMMON NORMALS: no rashes or lesions noted, no wounds, turgor normal, no petechiae and no mottling GENERAL SKIN EXAM: no rashes or lesions noted, elasticity normal and turgor normal Procedures Foreign Body Removal Time Out Performed: yes Site: urethra Description of foreign body: other (Ureteral stent, right) Sedation/Analgesia: none Technique: manual removal Confirmed by:: direct visualization Complications: none Post-procedure exam: awake, alert Neurovascular: normal distal pulse, normal capillary fill and other (Patient tolerated procedure without discomfort, ureteral stent was removed and intact) Course ED course: 34-year-old female patient who is 34 weeks IUP presents to the e mergency department with displacement of ureteral stent. String was visualized by KATERINA Rios this morning in the urethra. Dr. Gunn is out of town, urology currently not available. Ultrasound completed January 2020 revealed severe right hydronephrosis and hydroureter with marked atrophy of the kidney which was different from previous imaging in 2018. She developed new left-sided hydronephrosis and was offered a stent on the left side for renal function sparing. Etiology of right renal atrophy unknown. Consultations: Consultation #1: [facility], Dr. Shah, urologist contacted due to ureteral stent displacement. Ultrasound results including severe right-sided hydronephrosis and minimal left hydronephrosis with suspected 1.5 cm left lower pole renal stone. I discussed ureteral stent displacement with protrusion of 3 to 4 cm from the urethra. He advised to pull the stent and to have patient follow-up with Dr. Gunn on Monday. Time: 19:00 Consultation #2: Spoke with Dr. Gunn who is off call and out of town. I discussed that patient refusing removal of stent as she has been told to never pull the stent unless under anesthesia, she also discussed she is at higher risk for labor if she were to experience pain. Per Dr. Gunn to obtain x- ray KUB to obtain which side stent was displaced. If stent was displaced on the right, advised to pull the stent, patient would not need anesthesia for removal. If stent is displaced on the left, advised to attempt placing stent up into the bladder with assistance of a Torres catheter. Patient will follow-up in his office on Monday. Time: 19: Vital Signs: Vital signs: Vital Signs Temperature 98.6 F 05/09/20 16:48 Pulse Rate 81 05/09/20 20:49 Respiratory Rate 16 05/09/20 20:33 Blood Pressure 104/63 05/09/20 20:49 Pulse Oximetry 97 05/09/20 20:49 MDM - Female MDM Narrative: Medical decision making narrative: 36-year-old female patient who is 32 weeks IUP presents to the emergency department with displacement of right ureteral stent. Initial call to Dr. Shah at [facility] place due to her urologist here being out of town. Ureteral stent was visualized protruding through the urethra. Severe hydronephrosis on the right was appreciated on renal ultrasound. Mild hydronephrosis on the left with 1.4 cm renal stone visualized. Dr. Shah advised to pull the stent as right hydronephrosis is probably chronic since atrophy of the kidney is present. I discussed procedure with the patient, she refused stent discontinuation as she was advised to never pull the stent if anesthesia not provided. She also reported would place her at higher risk for labor. I placed a call to Dr. Gunn who was able to advise me on further recommendation. KUB abdomen with right nephroureteral stent over the right lower quadrant. Ureteral stent was discontinued after my conversation with the patient and recommendation of Dr. Gunn. Patient tolerated the procedure without pain or difficulty. Urinalysis did reveal white blood cells many white blood cells and bacteria 4+. She was placed on Omnicef for 5 days twice daily with recommendation to follow- up with Dr. Gunn on Monday. Verbalized understanding. Lab Data: Labs: Lab Results 05/09/20 05/09/20 05/09/20 Range/Units 18:00 18:00 18:52 WBC 9.7 (4.0-10.0) 10^3/ uL RBC 3.74 L (4.1-5.3) 10^6/u L Hgb 11.1 L (11.5-15.3) g/dL Hct 34.1 L (37.0-47.0) % MCV 91.2 (81-99) fL MCH 29.7 (28.0-34.0) pg MCHC 32.6 (30.0-36.0) g/dL RDW 13.9 (12.1-15.1) % Plt Count 231 (130-400) 10^3/c mm MPV 9.8 (7.4-10.4) fL Neut % (Auto) 77.1 % Lymph % (Auto) 14.3 % [place] % (Auto) 6.2 % Eos % (Auto) 1.4 % Baso % (Auto) 0.3 % Neut # (Auto) 7.50 (1.8-7.7) 10^3/u L Lymph # (Auto) 1.4 (0.8-4.8) 10^3/u L [place] # (Auto) 0.6 (0.2-0.9) 10^3/u L Eos # (Auto) 0.1 (0.0-0.8) 10^3/u L Baso # (Auto) 0.0 (0.0-0.1) 10^3/u L Nucleated RBC % (a uto) 0 % Nucleated RBCs # 0.0 /100WBC Sodium 137 (136-145) mmol/L Potassium 3.6 (3.5-5.1) mmol/L Chloride 101 (98-107) mmol/L Carbon Dioxide 24 (22-29) mmol/L Anion Gap 15.6 (5-19) BUN 9 (6-20) mg/dL Creatinine 0.5 (0.5-0.9) mg/dL GFR Calculation 143.0 H (90-130) mL/min Glucose 109 (65-115) mg/dL Calculated Osmolal ity 283 L (285-295) mOsm/k g Calcium 8.5 (8.5-10.5) mg/dL Total Bilirubin 0.2 (0.15-1.2) mg/dL AST 10 (0-32) U/L ALT 7 (0-33) U/L Alkaline Phosphata se 112 H (35-105) IU/L Total Protein 6.7 (6.6-8.7) g/dL Albumin 3.3 L (3.5-5.2) g/dL Globulin 3.4 (1.3-4.6) g/dL Urine Color Yellow (Yellow) Urine Appearance Sl cloudy A (CLEAR) Urine pH 8 H (5-7) Ur Specific Gravit y 1.015 (1.005-1.030) Urine Protein Trace (Negative) Urine Glucose (UA) Norm (Normal) Urine Ketones Negative (Negative) Urine Blood 3+ H (Negative) Urine Nitrate Negative (Negative) Urine Bilirubin Neg (Negative) Prot Sulfosalicyli c Acd Positive (Negative) Urine Urobilinogen Norm (Negative) mg/dL Ur Leukocyte Lucille ase 2+ H (Negative) Urine RBC 40-50 H (0-2) /hpf Urine WBC 55-80 H (0-5) /hpf Ur Squamous Epith Cells Too numerous to c nt H (0-5) /hpf Amorphous Sediment Not Reportable Urine Bacteria 4+ H (NONE) /hpf Imaging Data: Other Imaging: Radiologist's impression: [facility] [place] [address] Ultrasound Report Signed Patient: Berna WilksUnit #: [id number] : 1985Acct#:[id number] Age/Sex: 34 / FADM Date: 05/09/20 Loc: ERRoom/Bed: Attending Dr: Ordering Provider/Ordering MD: Krystal Almaguer Date of Service: 05/09/20 Procedure(s): US renal BI with PV bladder Accession Number(s): [id number] Report Number: [id number] PROCEDURE INFORMATION: Exam: US Retroperitoneal; Complete; Kidneys and Bladder Exam date and time: 05/09/2020 5:51 PM Age: 34 years old Clinical indication: Other: Displacement of ureteral stent; TECHNIQUE: Imaging protocol: Real-time ultrasound of the retroperitoneum with image documentation. Complete exam focused on the kidneys and bladder. COMPARISON: No relevant prior studies available. FINDINGS: Right kidney: The right kidney measures 14.8 cm with a 1.1 cm cortex. Severe right hydronephrosis. Left kidney: The left kidney measures 13.6 cm with a 1.3 cm cortex. Minimal left hydronephrosis. Echogenic, oval structure in the inferior left renal pole measures 1.5 cm. Urinary bladder: Not imaged. US/US renal BI with PV bladder IMPRESSION: 1. Severe right hydronephrosis. 2. Minimal left hydronephrosis. 3. Suspected 1.5 cm left lower pole renal stone. Dictated By:Monty Silver Signed By:Jimenez Silver Date/Time:05/09/201845 DD/ 44 Other Xray: Radiologist's impression: [facility] [address] [place] [address] XRay Report Signed Patient: Berna Wilks Unit #: [id number] : 1985 Age/Sex: 34 / F ADM Date: 05/09/20 Loc: ER Room/Bed: Attending Dr: Ordering Provider/Ordering MD: Krystal Almaguer Date of Service: 05/09/20 Procedure(s): XR KUB [id number] Accession Number(s): [id number] Report Number: [id number] PROCEDURE INFORMATION: Exam: XR Abdomen Exam date and time: 05/09/2020 7:58 PM Clinical indication: Device placement; Patient HX: PT 34 weeks with renal bilat renal stents, one displaced today, requested kub by urologist for placement. ; Additional info: Renal stent displacement - vrad to read please TECHNIQUE: Imaging protocol: XR of the abdomen. Views: Frontal supine view of the abdomen. 1 View. COMPARISON: No relevant prior studies available. FINDINGS: Tubes, catheters and devices: The left nephroureteral stent is noted with the superior portion projected over the expected medial margin of the left kidney. The inferior portion projects over the expected location of the base of the bladder. A right nephroureteral stent is noted with the superior portion projected over the right lower quadrant in the inferior portion projected external to the patient inferior to the field of view. Gastrointestinal tract: Moderate stool burden. Nonobstructive bowel gas pattern. Bones/joints: Unremarkable. Other findings: A lobulated calcification measuring approximately 0.4 cm projected over the inferior left kidney. A fetus is noted. XR/XR KUB [id number] IMPRESSION: 1. A left nephroureteral stent projects superiorly over the expected medial margin of the left kidney and inferiorly over the expected base of the bladder. 2. A right nephroureteral stent projects superiorly over the right lower quadrant and inferiorly outside of the field of view below the pelvis. 3. Approximately 1.4 cm suspected left renal stone. Dictated By: Monty Silver Signed By: Monty Silver Signed Date/Time: 05/09/202028 DD/ 27 Discharge Plan Discharge Patient Disposition: Home Clinical Impression: Displacement of indwelling ureteral stent Qualifiers: Encounter type: initial encounter Qualified Code(s): T83.122A - Displacement of indwelling ureteral stent, initial encounter Condition: Stable Prescriptions: New cefdinir 300 mg capsule 300 mg PO BID 5 Days Qty: 10 RF: 0 No Action prenat.vits,rere,kyq-kqlp-vtzjo Tablet 1 tab PO BEDTIME RF: 0 acetaminophen [Tylenol] 325 mg capsule 325 mg PO PRN RF: 0 oxycodone-acetaminophen 5-325 mg Tablet 1 tab PO Q6H PRN (Reason: Moderate To Severe Pain) Qty: 28 RF: 0 Discharge Orders: Discharge ED (Routine); Ordered 05/09/20 Ordered By: Krystal Almaguer Referrals: Jordan Mayes MD [Primary Care Provider] - Discharge Diet: Usual diet Discharge Activity: Resume usual activity Patient Instructions: Urinary Tract Infection in Women (ED), Abdominal Pain in (ED), Opioid Safety Activity Restrictions/Additional Instructions: Take Omnicef until gone, even if feeling better Follow-up with Dr. Gunn on Monday, and even if feeling better Return to the emergency department if you develop abdominal pain, nausea vomiting or fever Take antibiotic with food Coding Level of Care Code ED Patented Hogshead Assembler for Chg Fwd Exam Comprehensive
--- NOTE | 2020-05-09 17:49 | USR_ITS ---
PROCEDURE INFORMATION: Exam: US Retroperitoneal; Complete; Kidneys and Bladder Exam date and time: 05/09/2020 5:51 PM Age: 34 years old Clinical indication: Other: Displacement of ureteral stent; TECHNIQUE: Imaging protocol: Real-time ultrasound of the retroperitoneum with image documentation. Complete exam focused on the kidneys and bladder. COMPARISON: No relevant prior studies available. FINDINGS: Right kidney: The right kidney measures 14.8 cm with a 1.1 cm cortex. Severe right hydronephrosis. Left kidney: The left kidney measures 13.6 cm with a 1.3 cm cortex. Minimal left hydronephrosis. Echogenic, oval structure in the inferior left renal pole measures 1.5 cm. Urinary bladder: Not imaged. US/US renal BI with PV bladder IMPRESSION: 1. Severe right hydronephrosis. 2. Minimal left hydronephrosis. 3. Suspected 1.5 cm left lower pole renal stone.
[2020-05-09 18:16] LABS: Basophils % 0.3 %; Eosinophils # 0.1 10^3/uL (0.0-0.8); Eosinophils % 1.4 %; Hematocrit 34.1 % (37.0-47.0); Hemoglobin 11.1 g/dL (11.5-15.3); Lymphocytes # 1.4 10^3/uL (0.8-4.8); Lymphocytes % 14.3 %; Mean Corpuscular HGB Conc 32.6 g/dL (30.0-36.0); Mean Corpuscular Hemoglobin 29.7 pg (28.0-34.0); Mean Corpuscular Volume 91.2 fL (81-99); Mean Platelet Volume 9.8 fL (7.4-10.4); Monocytes # 0.6 10^3/uL (0.2-0.9); Monocytes % 6.2 %; Neutrophils % 77.1 %; Nucleated Red Blood Cells % 0 %; Platelet Count 231 10^3/cmm (130-400); Red Blood Count 3.74 10^6/uL (4.1-5.3); Red Cell Distribution Width 13.9 % (12.1-15.1); White Blood Count 9.7 10^3/uL (4.0-10.0)
[2020-05-09 18:34] LABS: Alanine Aminotransferase 7 U/L (0-33); Albumin Level 3.3 g/dL (3.5-5.2); Alkaline Phosphatase 112 IU/L (35-105); Anion Gap 15.6 (5-19); Aspartate Amino Transferase 10 U/L (0-32); Blood Urea Nitrogen 9 mg/dL (6-20); Calcium 8.5 mg/dL (8.5-10.5); Carbon Dioxide 24 mmol/L (22-29); Chloride 101 mmol/L (98-107); Globulin 3.4 g/dL (1.3-4.6); Glucose 109 mg/dL (65-115); Osmolality Calculated 283 mOsm/kg (285-295); Potassium 3.6 mmol/L (3.5-5.1); Sodium 137 mmol/L (136-145); Total Bilirubin 0.2 mg/dL (0.15-1.2); Total Protein 6.7 g/dL (6.6-8.7)
[2020-05-09] MEDS: famotidine 20 mg Tablet PO (18:59)
[2020-05-09] MEDS: alum-mag-hydroxide-sime 30 mL UDC PO (18:59)
--- NOTE | 2020-05-09 19:34 | XRR_ITS ---
PROCEDURE INFORMATION: Exam: XR Abdomen Exam date and time: 05/09/2020 7:58 PM Clinical indication: Device placement; Patient HX: PT 34 weeks with renal bilat renal stents, one displaced today, requested kub by urologist for placement. ; Additional info: Renal stent displacement - vrad to read please TECHNIQUE: Imaging protocol: XR of the abdomen. Views: Frontal supine view of the abdomen. 1 View. COMPARISON: No relevant prior studies available. FINDINGS: Tubes, catheters and devices: The left nephroureteral stent is noted with the superior portion projected over the expected medial margin of the left kidney. The inferior portion projects over the expected location of the base of the bladder. A right nephroureteral stent is noted with the superior portion projected over the right lower quadrant in the inferior portion projected external to the patient inferior to the field of view. Gastrointestinal tract: Moderate stool burden. Nonobstructive bowel gas pattern. Bones/joints: Unremarkable. Other findings: A lobulated calcification measuring approximately 0.4 cm projected over the inferior left kidney. A fetus is noted. XR/XR KUB 80091 IMPRESSION: 1. A left nephroureteral stent projects superiorly over the expected medial margin of the left kidney and inferiorly over the expected base of the bladder. 2. A right nephroureteral stent projects superiorly over the right lower quadrant and inferiorly outside of the field of view below the pelvis. 3. Approximately 1.4 cm suspected left renal stone.
[2020-05-09 20:13] LABS: Add Urine Microscopic? YES; Bilirubin Urine Neg (Negative); Blood Urine 3+ (Negative); Glucose Urine UA Norm (Normal); Ketones Urine Negative (Negative); Leukocyte Esterase Urine 2+ (Negative); Nitrate Urine Negative (Negative); Protein Urine Trace (Negative); Specific Gravity, Urine 1.015 (1.005-1.030); Sulfosalicylic Acid Urine Positive (Negative); Urine Color Yellow (Yellow); Urobilinogen Urine Norm (Negative); pH Urine 8 (5-7)
[2020-05-09 20:14] LABS: RBC Urine 40-50 /hpf (0-2); WBC Urine 55-80 /hpf (0-5)
[2020-05-09 20:15] LABS: Add Urine Culture? No; Bacteria Urine 4+ /hpf; Squamous Epithelial Cell Urine TOO NUMEROUS TO CNT /hpf (0-5)
[2020-05-09] MEDS: cefdinir 300 MG CAPSULE PO (20:30)
[2020-05-09 20:33] VITALS: BP 104/63; PULSE 82; RESP 16; O2SAT 96
[2020-05-09 20:49] VITALS: BP 104/63; PULSE 81; O2SAT 97
== END 2020-05-09 20:50 | disposition home or self-care (01) ==
PROVIDERS: Physician Assistant; Emergency Provider Nurse Practitioner Family; PCP Family Medicine
DX: O26.893 Other specified pregnancy related conditions, third trimester (principal); T83.9XXA Unspecified complication of genitourinary prosthetic device, implant and graft, initial encounter; O99.333 Smoking (tobacco) complicating pregnancy, third trimester; F17.210 Nicotine dependence, cigarettes, uncomplicated; Z3A.34 34 weeks gestation of pregnancy
CPT/HCPCS: 74018; 76770; 76857; 80053; 81001; 85025; 99284

== ENCOUNTER 2020-06-01 14:59 | Inpatient (IN) | payer BC, MEDICAID, SELFPAY ==
[2020-06-01] VITALS (32 sets, daily range): BP systolic 107–152; BP diastolic 62–95; PULSE 68–100; RESP 16–29; TEMP 35.8–36.7; O2SAT 97–100; BMI 23.2
[2020-06-01 11:44] LABS: Nitrazine Paper, PH Positive
[2020-06-01 12:16] LABS: Basophils % 0.3 %; Eosinophils # 0.2 10^3/uL (0.0-0.8); Eosinophils % 1.5 %; Hematocrit 34.3 % (37.0-47.0); Hemoglobin 11.7 g/dL (11.5-15.3); Lymphocytes # 1.5 10^3/uL (0.8-4.8); Lymphocytes % 13.6 %; Mean Corpuscular HGB Conc 34.1 g/dL (30.0-36.0); Mean Corpuscular Hemoglobin 30.9 pg (28.0-34.0); Mean Corpuscular Volume 90.5 fL (81-99); Mean Platelet Volume 10.2 fL (7.4-10.4); Monocytes # 0.6 10^3/uL (0.2-0.9); Monocytes % 5.5 %; Neutrophils # 8.42 10^3/uL (1.8-7.7); Neutrophils % 78.3 %; Nucleated Red Blood Cells % 0 %; Platelet Count 208 10^3/cmm (130-400); Red Blood Count 3.79 10^6/uL (4.1-5.3); White Blood Count 10.8 10^3/uL (4.0-10.0)
[2020-06-01] MEDS: alum-mag-hydroxide-sime 30 mL UDC PO (12:28)
[2020-06-01] MEDS: miSOPROStol 100 mcg tablet 25 MCG SUBLINGUAL (13:33)
[2020-06-01] MEDS: dextrose 5%-lactated ringers 1,000 ML 125 ML IV (15:24)
[2020-06-01] MEDS: fentaNYL 50 mcg/mL INJ 2mL IVP ×4 (15:27→20:36)
[2020-06-01] MEDS: oxytocin 30 UNIT/500 ML BAG 600 UNIT IV (16:53)
--- NOTE | 2020-06-01 17:23 | PM.DELIVERY ---
Delivery Note: Date of delivery: June 01, 2020 Pre-delivery diagnoses: The patient is a 34-year-old 7 para 4 at 37 weeks estimated gestational age who presented to the hospital with spontaneous rupture membranes. Post-delivery diagnoses: Status post spontaneous vaginal delivery Procedure: Spontaneous vaginal delivery Op report anesthesia: None (Fentanyl 25 mcg IV) Delivering Physician: Jordan Mayes Estimated blood loss (mL): 150 Pre-Delivery Course: The patient presented to the hospital complaining of spontaneous rupture membranes. She was found to be grossly ruptured. She was having infrequent contractions that were not very painful. Cytotec 25 mcg x 1 was placed sublingually. The patient then progressed to complete without difficulty. The patient's been remarkable for having hydronephrosis and having to have stents placed. Her blood type was A-. Covid status is unknown. Her glucose screen was mildly elevated, but she missed several appointments and was unable to have a 3-hour glucose test performed. The remainder of her labs were within normal limits with exception of an abnormal Pap. Delivery: DELIVERY: The patient progressed to complete without difficulty. She delivered a female with a weight of 6 pounds 2 ounces with Apgars of 8, 9. The baby was delivered from the RONY position. The baby's mouth and nose were suctioned at the site of the perineum. The baby was then completely delivered and placed on the mother's abdomen. The cord was then clamped and cut. There was no nuchal cord, but the cord was very short so we were only able to put the baby up on the lower part of the mother's abdomen. There was no meconium. The placenta and 3 vessel cord were delivered intact shortly thereafter. The perineum and vaginal vault were carefully examined. No lacerations were noted. Both the mother and the baby were in stable condition. Post-Delivery Status: Good A&P Assessment and plan (1) Renal colic on left side: Status: Acute (2) Right renal atrophy: Status: Acute (3) Intrauterine : Status: Acute (4) 37 weeks gestation of : Status: Acute Coding Level of Care Code Acute [employer] for [facility] Diagnoses Renal colic on left side N23 Right renal atrophy N26.1 Intrauterine Z34.90 37 weeks gestation of Z3A.37
--- NOTE | 2020-06-01 17:31 | P.HP_ITS ---
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 The patient had an un remarkable delivery of a healthy-appearing 37-week infant about an hour ago. Her was remarkable for having hydronephrosis and kidney stones and currently still has a kidney stent. She had expressed a desire for sterilization earlier in her . We discussed the risks of bleeding, infection, and damage intra-abdominal organs associated with a tubal. We also discussed a 1 and 200 chance of becoming again despite a tubal ligation. Finally we also discussed an increased risk of an ectopic . She and her had no further questions and wished to proceed. Present Details : 7 Para: 4 Labs Rubella: Immune RPR: Unknown GBS: Negative Review of Systems General: Reports: 10 or more systems reviewed and unremarkable except in HPI and below Const: Reports: fatigue; Denies: fever(s) Eyes: Denies: change in vision Card: Denies: chest pain : Reports: flank pain (Chronic throughout her both left and right side) Musc: Reports: back pain Dixon/Lymph: Denies: easy bruising Medications/Allergies Home Medications Medication Instructions Recorded Confirmed Last Taken Type acetaminophen 325 mg capsule 325 mg PO PRN 01/15/20 05/09/20 05/06/20 History prenat.vits,rere,hgf-cfxn-kxswa 1 tab PO BEDTIME 01/15/20 05/09/20 05/08/20 His tory oxycodone-acetaminophen 1 tab PO Q6H PRN #28 tab 04/22/20 05/09/20 Unknown Rx Allergies Allergy/AdvReac Type Severity Reaction Status Date / Time carbamazepine [From Tegretol] Allergy ADR-Seizure Verified 05/09/20 17:22 latex Allergy ALGY-Rash Verified 05/09/20 17:22 methylphenidate Allergy ALGY-Rash Verified 05/09/20 17:22 [From Ritalin] onion Allergy Unknown Verified 05/09/20 17:22 PFSH PURCHASE ORDER CHECKER PFSH: Medical History History of kidney stones Intrauterine Right renal atrophy Urolithiasis Surgical History History of lithotripsy Family History Other CAD (coronary artery disease) Cancer Diabetes Social History Smoking and tobacco status: current every day smoker Alcohol intake: never Adopted: No Caregiver/support person: No Lives independently: No Household members: spouse Marital status: Current occupational status: unemployed Vitals/I&O/Wt Last Vital Signs Temp 97.0 F L 06/01/20 17:19 Pulse 74 06/01/20 16:57 Resp 17 06/01/20 17:06 BP 147/79 06/01/20 16:57 Weight last 48 hrs Weight 131 lb Physical Exam Const: COMMON NORMALS: patient oriented x3 and alert HENMT: COMMON NORMALS: moist oral mucous membranes HEAD & SCALP: normal to inspection Chest: COMMONS NORMALS: normal inspection of the chest Resp: COMMON NORMALS: clear to auscultation bilaterally AUSCULTATION: clear to auscultation bilaterally Cardio: COMMON NORMALS: regular rate and regular rhythm RATE: regular rate RHYTHM: regular rhythm GI: INSPECTION: Yes normal to inspection and Yes other (Gravid) Extremity: COMMON NORMALS: normal to inspection GENERAL: Yes edema (Trace) Neuro: COMMON NORMALS: patient oriented x3, moves all extremities and no sensory deficits noted SENSORIUM/ORIENTATION: Yes alert Psych: COMMON NORMALS: mental status grossly normal Skin: COMMON NORMALS: no rashes or lesions noted GENERAL SKIN EXAM: no rashes or lesions noted Data : 06/01/20 11:30 A&P Assessment and plan (1) 37 weeks gestation of : Status: Acute (2) Renal colic on left side: Status: Acute (3) Sterilization consult: We will proceed with a bilateral tubal ligation this evening after the next case. Status: Acute (4) Spontaneous vaginal delivery: Status: Acute Attestations Medical Necessity Statement*: Anticipate routine and post tubal care. Coding Level of Care Code Acute Wireless Cellular Technician for Chg Fwd Diagnoses 37 weeks gestation of Z3A.37 Renal colic on left side N23 Sterilization consult Z30.09 Spontaneous vaginal delivery O80
--- NOTE | 2020-06-01 18:47 | ANES.PREANE2 ---
Pre-Anesthetic Assessment Pre-Anesthetic Assessment: Height/Weight: Height 1.6 m Weight 59.421 kg Temp Pulse Resp BP Pulse Ox 97.7 F 78 18 122/81 98 06/01/20 18:33 06/01/20 18:33 06/01/20 18:33 06/01/20 18:33 06/01/20 18:33 Preop Diagnosis: Intrauterine , 31 weeks with bilateral ureteral obstruction Proposed Procedure: Operation Date: 06/01/20 21:50 Proposed Procedures p Bilateral Tubal Ligation(Bilateral) - Jordan Mayes MD Was Beta Alcira taken within 24 hours: N/A Was Clonidine taken within 24 hours: N/A Last intake: Intake Last Liquid Date 06/01/20 Last Liquid Time 09:00 Last Solid Date 06/01/20 Last Solid Time 09:00 Social: Social History: Tobacco and No alcohol Exam: Pre-Anes Outpt Exam: alert, oriented x 3 and regular rate & rhythm Airway: Submandibular: WNL Cervical ROM: WNL MP: 2 Dentition: Chipped History/ROS: No significant history except as noted Anesthetic Plan: ASA status: 2 Anesthesia: General Other: 1 day Risk of > 500 ml blood loss (7ml/kg in children): No PFSH Anesthesia PFSH: Medical History History of kidney stones Intrauterine Right renal atrophy Urolithiasis Surgical History History of lithotripsy Family History Other CAD (coronary artery disease) Cancer Diabetes Social History Smoking and tobacco status: current every day smoker Alcohol intake: never Adopted: No Caregiver/support person: No Lives independently: No Household members: spouse Marital status: Current occupational status: unemployed Female Reproductive History: : 7 Data Anesthesia CBC & Chem 7: 06/01/20 11:30 Other Labs: Laboratory Results - last 48 hr 06/01/20 11:30 WBC 10.8 H RBC 3.79 L Hgb 11.7 Hct 34.3 L MCV 90.5 MCH 30.9 MCHC 34.1 RDW 14.0 Plt Count 208 MPV 10.2 Neut % (Auto) 78.3 Lymph % (Auto) 13.6 [place] % (Auto) 5.5 Eos % (Auto) 1.5 Baso % (Auto) 0.3 Neut # (Auto) 8.42 H Lymph # (Auto) 1.5 [place] # (Auto) 0.6 Eos # (Auto) 0.2 Baso # (Auto) 0.0 Nucleated RBC % (auto) 0 Nucleated RBCs # 0.0 Cardiac Studies: No Data to Display
[2020-06-01] MEDS: citric acid-sodium citrate 30 mL UDC PO ×2 (19:00)
[2020-06-01] MEDS: sodium chloride 0.9% 1,000 ML 30 ML IV (19:18)
--- NOTE | 2020-06-01 19:18 | SUR.PHASEI ---
PT AWAKE ALERT RESTING, IV DCD D5LR WITH 500ML WASTED AND NS IV AT KVO UP, DR ALVAREZ AT BEDSIDE, PERMIT SIGNED, SATS 100% ON RA HR 69
--- NOTE | 2020-06-01 20:16 | P.OP_ITS ---
Operative Report Date of procedure: June 01, 2020 Pre-op Diagnosis: female desiring sterilization Post-op diagnosis: same Procedure Done: minilaparotomy bilateral tubal ligation using a modified Eva technique Specimens removed/disposition: Bilateral fallopian tube segments with the right segment being tagged Pathology: other (Continued segments with the right segment being tagged) Surgeon: Jordan Mayes Anesthesia: General Estimated blood loss (mL): 5 Complications: None Condition: stable Disposition: floor (OB) Brief History: Refer to history and physical Procedure: The patient was brought back to the operating room where anesthesia was found to be adequate. 10 mL of 0.5% bupivacaine was then used to pre- anesthetize the area just inferior to the umbilicus. A #15 blade was then used to make a 3 cm transverse incision just inferior to the umbilicus. I then d issected down to the underlying subcutaneous tissue until arriving at the fascia. The fascia was then nicked with the scalpel. The fascial incision was extended manually. I identified the fundus of the uterus and followed it to the left fallopian tube. The fallopian tube was then followed to the fimbria. The tube was then ligated, cut, and cauterized in a modified [place] fashion using 0 chromic. The right fallopian tube was then identified and followed through to the fimbria. It was ligated, cut, and cauterized in similar fashion. The right fallopian tube was tagged. Both fallopian tubes had excellent hemostasis. The fascia was reapproximated using 0 Vicryl in running stitch. The subcutaneous tissue was carefully examined and no further bleeding was noted. The skin was then reapproximated using 4-0 Vicryl in a running subcuticular stitch. A sterile dressing was placed. All counts were correct x2. The patient was moved to the recovery room in stable condition.
--- NOTE | 2020-06-01 20:21 | P.PCN_ITS ---
PACU note PACU note: VSS, Good respiratory effort, report to SNACK STEWARDESS Post-Anesthesia Exam: awake
--- NOTE | 2020-06-01 20:21 | PM.PACU ---
PACU note PACU note: VSS, Good respiratory effort, report to VIRTUAL CLASSROOM MANAGER Post-Anesthesia Exam: awake
--- NOTE | 2020-06-01 20:33 | ANE.PACU2 ---
Inpatient post-anesthesia follow up: Airway intact: Yes Vital signs: Temperature 97.8 F Pulse Rate 75 Respiratory Rate 21 Blood Pressure 143/89 Pulse Oximetry 100 Oxygen Delivery Me thod Room Air Oxygen Flow Rate 6 Fraction of Inspir ed Oxygen Hydration adequate: Yes Nausea and vomiting: No Pain level: 2 Mental status: Baseline
--- NOTE | 2020-06-01 20:45 | SUR.PHASEI ---
2035 PT CRYING OUT WITH PAIN PT C/O OF CRAMPING PAIN TO ABD SEE PAIN MED GIVEN 2044 PT SLEEPS QUIETLY VSS GOOD RESP EFFORT, NO DISTRESS NOTED ABD SOFT DRESSING D/I WARM BLANKET TO ABD.
--- NOTE | 2020-06-01 21:10 | SUR.PHASEI ---
PT TO FLOOR AWAKE ALERT MOVES SELF TO BED PT THEN CRYING WITH PAIN WARM BLANKET TO PT ABD, VSS IV PATENT IN ROOM WITH BABY. CASH SPECIALIST WITH PT UNTIL NOW.
[2020-06-01] MEDS: ibuprofen 800 mg tablet PO (21:17)
[2020-06-01] MEDS: oxyCODONE-APAP 5-325 mg Tablet 1 TAB PO (21:18)
[2020-06-02] VITALS (11 sets, daily range): BP systolic 114–143; BP diastolic 72–81; PULSE 70–75; RESP 15–17; TEMP 36.4–36.8; O2SAT 96–98
[2020-06-02] MEDS: oxyCODONE-APAP 5-325 mg Tablet PO ×5 (01:23→18:34)
[2020-06-02 04:40] LABS: Bilirubin Urine Neg (Negative); Blood Urine 3+ (Negative); Glucose Urine UA Trace (Normal); Ketones Urine Negative (Negative); Leukocyte Esterase Urine 2+ (Negative); Nitrate Urine Negative (Negative); Protein Urine Trace (Negative); Specific Gravity, Urine 1.015 (1.005-1.030); Urine Appearance Cloudy (CLEAR); Urine Color Red (Yellow); Urobilinogen Urine Norm (Negative); pH Urine 8 (5-7)
[2020-06-02 04:41] LABS: Sulfosalicylic Acid Urine Positive (Negative)
[2020-06-02 04:42] LABS: Add Urine Culture? Yes; Bacteria Urine TRACE /hpf; RBC Urine TOO NUMEROUS TO CNT /hpf (0-2); Squamous Epithelial Cell Urine 0-4 /hpf (0-5); WBC Urine TOO NUMEROUS TO CNT /hpf (0-5)
--- NOTE | 2020-06-02 08:10 | PM.OBGYDC ---
Discharge Providers ROTOGRAVURE PRESS OPERATOR Date of Admission: 06/01/20 14:59 Date of Discharge: 06/02/20 Attending Provider at Admission: Jordan Mayes MD Attending Provider at Discharge: Jordan Mayes MD Primary Care Provider: Jordan Mayes MD Diagnoses at Discharge Discharge Diagnosis (1) 37 weeks gestation of : Status: Acute (2) Renal colic on left side: Status: Acute (3) Sterilization consult: Status: Acute (4) Spontaneous vaginal delivery: Status: Acute Reason for Visit Reason for Visit: loss of fluid Hospital Course Hospital Course The patient presented to the hospital with spontaneous rupture membranes. Her contractions were irregular and her cervix was 50% effaced. Cytotec 25 mcg x 1 was placed. She then progressed to complete and had an unremarkable delivery of a healthy-appearing 37-week female. A bilateral tubal ligation was then performed later on the same day. She was breast-feeding with the assistance of the media center specialist. There were no other complications. Information Peripartum Data: Infant Delivery Method: Vaginal Physical Exam Narrative: EXAM NARRATIVE: She is in no acute distress Lungs are clear auscultation bilaterally Her heart has a regular rate and rhythm Her fundus is below the umbilicus and firm Her dressing is clean, dry and intact Her extremities have trace edema Discharge Data Data Completed and Pending: Pending at discharge Category Date Time Status COVID [Coronaviru s Test Green Count y] Routine Lab 06/01/20 14:10 Received Hemagram Timed Lab 06/02/20 08:14 Uncollected Urine Culture Rou brian Lab 06/02/20 04:00 Received Pathology: Surgic al [PTH] Routine Pth 06/01/20 20:11 Ordered Labs from last 24 hours 06/02/20 06/01/20 06/01/20 04:00 14:10 11:30 WBC 10.8 H RBC 3.79 L Hgb 11.7 Hct 34.3 L MCV 90.5 MCH 30.9 MCHC 34.1 RDW 14.0 Plt Count 208 MPV 10.2 Neut % (Auto) 78.3 Lymph % (Auto) 13.6 [place] % (Auto) 5.5 Eos % (Auto) 1.5 Baso % (Auto) 0.3 Neut # (Auto) 8.42 H Lymph # (Auto) 1.5 [place] # (Auto) 0.6 Eos # (Auto) 0.2 Baso # (Auto) 0.0 Nucleated RBC % (a uto) 0 Nucleated RBCs # 0.0 Urine Color Red Urine Appearance Cloudy Urine pH 8 H Ur Specific Gravit y 1.015 Urine Protein Trace Urine Glucose (UA) Trace H Urine Ketones Negative Urine Blood 3+ H Urine Nitrate Negative Urine Bilirubin Neg Prot Sulfosalicyli c Acd Positive Urine Urobilinogen Norm Ur Leukocyte Lucille ase 2+ H Urine RBC Too numerous to c nt H Urine WBC Too numerous to c nt H Ur Squamous Epith Cells 0-4 H Amorphous Sediment Not Reportable Urine Bacteria Trace Nasal/Oral COVID-1 9 PCR Pending Vitals: Last Vital Signs Temp 98.1 F 06/02/20 03:55 Pulse 75 06/02/20 03:55 Resp 16 06/02/20 05:28 BP 121/72 06/02/20 03:55 Pulse Ox 96 06/02/20 03:55 Discharge Plan Discharge Patient Disposition: Home Condition: Stable Prescriptions: New ibuprofen 800 mg Tablet 800 mg PO TID Qty: 45 RF: 0 oxycodone-acetaminophen 5-325 mg Tablet 1 - 2 tab PO Q4H PRN (Reason: Moderate To Severe Pain) Qty: 30 RF: 0 Continued prenat.vits,rere,yxr-ianx-bmova Tablet 1 tab PO BEDTIME RF: 0 acetaminophen [Tylenol] 325 mg capsule 325 mg PO PRN RF: 0 Discontinued oxycodone-acetaminophen 5-325 mg Tablet 1 tab PO Q6H PRN (Reason: Moderate To Severe Pain) Qty: 28 RF: 0 Discharge Orders: Discharge Order (Routine); Ordered 06/02/20 Ordered By: Jordan Mayes Referrals: Jordan Mayes MD [Primary Care Provider] - 4-7 days (Also set up 6 week follow up.) Discharge Diet: Advance as tolerated Discharge Activity: Limit activity as instructed Patient Instructions: Vitamins (By mouth), Pre-eclampsia and Eclampsia (DC), Bleeding (DC), OB Discharge Report, OB Food/Drug Interaction Guide, Opioid Safety, OB Proud Parent Packet, OB Vaginal Deliveries Discharge Attestations ROTOGRAVURE PRESS OPERATOR Time Spent in Discharge Care*: greater than 30 min Coding Level of Care Code Acute Vp Customer Development for Chg Fwd Diagnoses 37 weeks gestation of Z3A.37 Renal colic on left side N23 Sterilization consult Z30.09 Spontaneous vaginal delivery O80
[2020-06-02 08:50] LABS: Hematocrit 34.3 % (37.0-47.0); Hemoglobin 10.9 g/dL (11.5-15.3); Mean Corpuscular HGB Conc 31.8 g/dL (30.0-36.0); Mean Corpuscular Hemoglobin 29.1 pg (28.0-34.0); Mean Corpuscular Volume 91.5 fL (81-99); Mean Platelet Volume 9.7 fL (7.4-10.4); Platelet Count 192 10^3/cmm (130-400); Red Blood Count 3.75 10^6/uL (4.1-5.3); Red Cell Distribution Width 14.1 % (12.1-15.1); White Blood Count 11.1 10^3/uL (4.0-10.0)
[2020-06-02] MEDS: docusate sodium 100 mg Capsule PO (09:17)
[2020-06-02] MEDS: prenatal vitamin Capsule 1 CAP PO (09:17)
[2020-06-02] MEDS: ibuprofen 800 mg tablet PO ×2 (09:17→14:35)
[2020-06-02 14:28] LABS: Coronavirus Test Green County Not Detected
--- NOTE | 2020-06-05 16:17 | PC.RESP ---
Smoking Cessation information sent to patient.
== END 2020-06-02 19:16 | disposition home or self-care (01) | DRG 798 ==
LOC: OBGYN 18:25 → OPOB 06-02 12:14 → OBGYN 06-02 12:14
PROVIDERS: Admitting Provider Family Medicine; PCP Family Medicine; Visit Provider Family Medicine
PROC: 10E0XZZ Delivery of Products of Conception, External Approach (ICD-10-PCS; CPT 58605; principal; 2020-06-01 21:30)
DX: O99.892 Other specified diseases and conditions complicating childbirth (principal); Z37.0 Single live birth; O99.334 Smoking (tobacco) complicating childbirth; F17.200 Nicotine dependence, unspecified, uncomplicated; N26.1 Atrophy of kidney (terminal); N23 Unspecified renal colic; Z3A.37 37 weeks gestation of pregnancy; Z79.891 Long term (current) use of opiate analgesic; Z30.2 Encounter for sterilization
CPT/HCPCS: 12345; 36415; 59025; 59409; 81001; 83986; 85025; 85027; 87086; 87635; 88302; 96374; 96375; 98960; 99211; J0330; J2405; J2704; J3010; J3490; J7030

== ENCOUNTER 2020-07-09 08:11 | Outpatient (CLI) | payer BC, MEDICAID, SELFPAY ==
--- NOTE | 2020-07-09 07:45 | XR_ITS ---
WS: [id number] Exam: XR KUB [id number] Date/Time of Exam: 07/09/2020 8:20 AM Reason For Exam: N26.1 - Atrophy of kidney (terminal) Comparison 05/09/2020. A left ureteral stent is in place appearing to be in satisfactory location. Several calcifications andrade perimpose the left renal silhouette most likely representing renal calculi. A 1.7 x 0.53 cm ovoid rere cification is noted along the lateral margin of the distal left ureteral catheter and may represent a large stone in the distal ureter. No bowel obstruction or free air. Questionable mass in the right a bdomen that may represent an enlarged right kidney or dilated right renal collecting system. This dis places the transverse colon inferiorly. XR/XR KUB [id number] IMPRESSION: 1. Left ureteral catheter in satisfactory location. There are several calcifica tions superimposing the lower pole left kidney that may represent calculi. 2. 1.7 x 0.53 ovoid calcification noted along the inferior lateral margin of th e left ureteral catheter and probably represents a large stone in the distal le ft ureter. 3. Ill-defined soft tissue mass in the right abdomen that displaces the transve rse colon inferiorly. This may represent an enlarged kidney or dilated right re nal collecting system or other mass the right abdomen. Right abdominal ultrasou nd would be helpful for further workup if felt to be clinically warranted.
== END 2020-07-09 08:12 | disposition home or self-care (01) ==
LOC: RAD 08:15
PROVIDERS: PCP Family Medicine; Visit Provider Urology
DX: N26.1 Atrophy of kidney (terminal) (principal); Z96.0 Presence of urogenital implants
CPT/HCPCS: 74018; 81003

== ENCOUNTER → 2020-07-14 08:12 | Outpatient (BNVA) | payer BC, MEDICAID, SELFPAY | PROVIDERS: PCP Family Medicine; Visit Provider Urology | DX: N20.1 Calculus of ureter (principal); Z96.0 Presence of urogenital implants | CPT/HCPCS: 87635 ==

== ENCOUNTER 2020-07-20 10:38 | Day surgery (SDC) | payer BC, MEDICAID, SELFPAY ==
[2020-07-17 14:34] VITALS: BMI 21.2
--- NOTE | 2020-07-20 10:48 | XR_ITS ---
WS: [id number] ABDOMEN: SUPINE FILM HISTORY: Preop ESWL COMPARISON: 07/09/2020 Normal bowel gas pattern. Right kidney: Soft tissue outline of the RIGHT kidney and appears enlarged. Left kidney: Double pigtail LEFT ureteral stent remains in unchanged position. There is a large ovoid 15 mm calcification adjacent to the distal ureteral stent which is unchanged. 5 mm calcification geno ng the proximal ureteral stent. This calcification was previously in the renal pelvis. XR/XR KUB [id number] IMPRESSION: 1. Inferior migration of 5 mm calcification previously noted within the LEFT r enal pelvis now in the proximal ureter. 2. No change in position of the ovoid 15 mm calcification adjacent to the dist al LEFT ureteral stent. 3. Enlarged outline RIGHT kidney.
[2020-07-20 11:19] LABS: OR HCG Qualitative Urine Negative (Negative)
[2020-07-20 11:22] VITALS: BP 139/86; PULSE 60; RESP 16; TEMP 37.1; O2SAT 100
[2020-07-20] MEDS: sodium chloride 0.9% 1,000 ML 30 ML IV (11:43)
--- NOTE | 2020-07-20 11:55 | ANES.PREANE2 ---
Pre-Anesthetic Assessment Pre-Anesthetic Assessment: Height/Weight: Height 1.6 m Weight 54.431 kg Temp Pulse Resp BP Pulse Ox 98.8 F 60 16 139/86 100 07/20/20 11:22 07/20/20 11:22 07/20/20 11:22 07/20/20 11:22 07/20/20 11:22 Preop Diagnosis: Left ureteral stone, encrusted left ureteral stent, right UPJ obstruction Proposed Procedure: Operation Date: 07/20/20 12:00 Proposed Procedures p ESWL 09443 [id number] Z96.0 N20.1(Left) - MD misha Rasmussen Ureteral Stent Exchange(Not Applicable) - MD misha Rasmussen Retrograde Pyelogram(Right) - MD misha Rasmussen Ureteral Stent Placement(Not Applicable) - Mariano Gunn MD Familial anesthetic complications: none Was Beta Alcira taken within 24 hours: N/A Was Clonidine taken within 24 hours: N/A Last intake: Intake Last Liquid Date 07/20/20 Last Liquid Time 05:00 Last Solid Date 07/19/20 Last Solid Time 21:00 Last Intake: 05:00 Social: Social History: Tobacco and No alcohol Packs per day: 1/3 Pack years: 15 Exam: Pre-Anes Outpt Exam: alert and oriented x 3 Airway: Submandibular: WNL Cervical ROM: WNL MP: 3 Dentition: Chipped History/ROS: No significant history except as noted : Comments: kidney stone Anesthetic Plan: ASA status: 2 Anesthesia: Anesthesia Evaluation and General Risk of > 500 ml blood loss (7ml/kg in children): No Meds/Allergies Current Medications: Current Medications Generic Name Dose Route Start Last Admin Trade Name Freq PRN Reason Stop Dose Admin Sodium Chloride 1,000 mls @ 30 ml s/hr 07/20/20 11:00 07/20/20 11:43 Sodium Chloride 0.9% IV 07/21/20 10:59 30 mls/hr .Q24H MOLLY Administration PFSH Anesthesia PFSH: Medical History (Updated 07/09/20 @ 09:33 by Mariano Gunn MD) Intrauterine Left ureteral calculus Retained ureteral stent Right renal atrophy Urolithiasis Surgical History History of lithotripsy Family History Other CAD (coronary artery disease) Cancer Diabetes Social History Smoking and tobacco status: current every day smoker Alcohol intake: never Adopted: No Caregiver/support person: No Lives independently: No Household members: spouse Marital status: Current occupational status: unemployed Data Anesthesia Other Labs: Laboratory Results - last 48 hr 07/20/20 11:13 Urine HCG, Qual Negative Cardiac Studies: No Data to Display
[2020-07-20] MEDS: levofloxacin-dextrose 5 % 500 MG/100 ML PREMIX 100 MG IV (12:13)
--- NOTE | 2020-07-20 12:20 | P.HPUD_ITS ---
Surgery/Procedure H&P Update DATE OF PROCEDURE: July 20, 2020 DATE H&P PERFORMED: 07/09/20 H&P UPDATE INFORMATION: I have reviewed H&P completed within last 30 days, I have examined patient prior to procedure, No changes to prior documentation and H&P is in [facility] EMR on date indicated PREOP DIAGNOSIS: Left ureteral stone, encrusted left ureteral stent, right UPJ obstruction PLANNED PROCEDURE: Operation Date: 07/20/20 12:00 Proposed Procedures p ESWL [id number] Z96.0 N20.1(Left) - Mariano Gunn MD s Ureteral Stent Exchange(Not Applicable) - Mariano Gunn MD s Retrograde Pyelogram(Right) - MD misha Rasmussen Ureteral Stent Placement(Not Applicable) - Mariano Gunn MD
[2020-07-20 13:10] LABS: Anion Gap 15.9 (5-19); Blood Urea Nitrogen 6 mg/dL (6-20); Calcium 8.5 mg/dL (8.5-10.5); Carbon Dioxide 23 mmol/L (22-29); Chloride 105 mmol/L (98-107); Glomerular Filtration Rate 96.4 mL/min (90-130); Glucose 79 mg/dL (65-115); Osmolality Calculated 287 mOsm/kg (285-295); Potassium 3.9 mmol/L (3.5-5.1); Sodium 140 mmol/L (136-145)
[2020-07-20] MEDS: iohexol 300 mg/mL 50 mL Btl (OR ONLY) XX (13:12)
--- NOTE | 2020-07-20 14:10 | P.OP_ITS ---
Operative Report Date of procedure: July 20, 2020 Pre-op Diagnosis: Left ureteral stone, encrusted left ureteral stent, right UPJ obstruction Post-op Diagnosis: 1. Encrusted left ureteral stent 2. Left proximal ureteral stone (previously located in the left lower pole) 3. Large LEFT distal ureteral stone 4. Left UPJ obstruction with severely dilated left collecting system. Procedure Done: 1. Extracorporeal shockwave lithotripsy to the following: Encrusted proximal left ureteral stent Left proximal ureteral stone Large left distal ureteral stone 2. Cystoscopy LEFT: Ureteral stent placement (7 Kittitian by 26 cm double-pigtail) 3. RIGHT: Retrograde ureteropyelogram, ureteral stent (7 Kitt[place] by 30 cm double-pigtail) Implants: Bilateral ureteral stents as above Pathology: none sent Surgeon: Luis A Gas Fitter Helper: Lithotripsy Accounts Receivable Manager: General Cárdenas Anesthesia: General Estimated blood loss: Minimal Urine output: Not measured Complications: None Findings: 1. The stent was easily withdrawn after approximately 8000 shocks to the proximal end 2. The left PROXIMAL ureteral stone was effectively treated with ESWL and broken up very easily 3. Good change to the large left DISTAL ureteral stone 4. Severely dilated left collecting system. Huge. Findings consistent with UPJ obstruction. Stent was able to be manipulated into the renal pelvis Condition: stable Disposition: PACU Brief History: Mrs. Wilks is a very pleasant 35-year-old white female with a complex history of stone disease typically showing up when she is . She was discovered during recent to have a large left distal ureteral stone and required stenting due to refractory symptoms. She was also seen on ultrasound to have a very severely dilated right kidney. Previously during another she had had nonobstructive scenario requiring stenting. There was a hint of UPJ obstruction on the RIGHT with an abbreviated 3 shot IVP performed during her last . Unfortunately the stent that was placed on the right side fell out and she is back now for attempt at definitive treatment of the LEFT ureteral large stone and reevaluation of the right side with retrograde as well as stenting. Procedure: After routine preoperative evaluation examination and obtaining of informed consent she was taken to the operating suite on 07/20/2020 where general anesthesia was administered without difficulty after appropriate timeout was performed, SCDs confirmed to be functioning, preoperative antibiotics administered, beta-gigi protocol confirmed. Positioned on the Dornier unit such that the proximal aspect of the left ureteral stent was brought into the focal point. On preop KUB the smaller stone previously identified in the left lower pole was confirmed to be in the left proximal ureter and this was also confirmed on fluoroscopy today. Both the smaller stone as well as left proximal aspect of the stent were treated with ESWL. Both broke well. (Calcification on the stent not the stent). She was then positioned in dorsolithotomy position paying careful attention to avoiding pressure points. The distal curve of the stent was withdrawn through the urethral meatus but a wire could not be easily advanced up it due to encrustation internally. A flexible tip guidewire was then advanced next to the stent up the left ureter bypassing the stone and curling in the area of the upper pole calyx. The stent was then removed the remainder of the way without difficulty and with visualization via fluoroscopy of easy uncurling of the stent. A 7 Kittitian by 26 cm double-pigtail stent was then advanced without difficulty over the guidewire through the cystoscope into appropriate position as confirmed via fluoroscopy cystoscopy. An 8 Kittitian cone-tip catheter was then intubated into the RIGHT ureteral orifice for a right retrograde ureteropyelogram which showed filling of the ureter up to the area of the UPJ but no contrast could be manipulated more proximally. A flexible tip guidewire was then passed but reached about the same point and was not clear that it was making progress into the renal pelvis. An open-ended ureteral catheter was then advanced to this position the guidewire removed and contrast was injected basically showing the same thing. A flexible zip wire was then passed through the open-ended ureteral catheter which allowed manipulation of the wire into the renal pelvis and then the open-ended ureteral catheter into the renal pelvis. Contrast was then reinjected filling the renal pelvis which was severely severely dilated. A normal flexible tip guidewire was then advanced through the open-ended ureteral catheter which was then removed and a 7 Kitt[place] by 30 cm double-pigtail stent was advanced over the guidewire through the cystoscope into appropriate position as confirmed via fluoroscopy and cystoscopy with the proximal end clearly in the dilated renal pelvis. She was then repositioned in supine position again and the focal point was brought to the large previously untreated left distal ureteral stone and received 3000 shocks beginning at a rate of 60 and advancing to a rate of 90 with apparent good change. There was significant decreasing of density and a blurring of the edges. The procedure was then completed. She tolerated procedure well without complications and was awakened in the operating room and returned to the recovery in stable condition. PLANS: 1. Anticipate discharge from outpatient surgery today 2. Follow-up in approximately 1 week with a KUB. 3. She may require endoscopic removal of fragments if there was a significant mount of edema around the stone location. Hopefully the fragmentation process has been adequate p.o. to pass the small fragments. 4. She will require work-up for functional assessment of the kidney possibly CT possible renal scan (nuclear) for assessment of function to decide whether it is adequate function worthy of saving the kidney.
[2020-07-20 14:16] VITALS: BP 148/93; PULSE 84; RESP 18; TEMP 36.2; O2SAT 96
[2020-07-20 14:20] VITALS: BP 141/90; PULSE 67; RESP 20; O2SAT 100
[2020-07-20 14:25] VITALS: BP 159/89; PULSE 69; RESP 19; TEMP 36.4; O2SAT 97
[2020-07-20 14:50] VITALS: BP 145/94; PULSE 61; RESP 18; TEMP 36.2; O2SAT 96
[2020-07-20] MEDS: ondansetron 2 mg/ML SDV 2 mL 4 MG IVP (14:57)
[2020-07-20 15:45] VITALS: BP 144/83; PULSE 59; RESP 16; TEMP 36.6; O2SAT 98
== END 2020-07-20 16:05 | disposition home or self-care (01) ==
PROVIDERS: PCP Family Medicine; Visit Provider Urology
PROC: (CPT 50590; principal; 2020-07-20 12:00)
PROC: (CPT 50590; 2020-07-20 12:00)
PROC: (CPT 74420; 2020-07-20 12:00)
PROC: (CPT 50605; 2020-07-20 12:00)
DX: N20.1 Calculus of ureter (principal); N13.5 Crossing vessel and stricture of ureter without hydronephrosis; F17.210 Nicotine dependence, cigarettes, uncomplicated
CPT/HCPCS: 50590; 52332; 36415; 74018; 80048; 81025; 84703; 96374; C2625; J1100; J1956; J2250; J2405; J2704; J2710; J3490; J7030

== ENCOUNTER 2020-07-29 14:45 | Outpatient (CLI) | payer BC, MEDICAID, SELFPAY ==
--- NOTE | 2020-07-29 12:45 | XR_ITS ---
WS: [id number] Exam: XR KUB [id number] Date/Time of Exam: 07/29/2020 3:02 PM Reason For Exam: N20.1 - Calculus of ureter Comparison 07/20/2020. There are bilateral ureteral catheters in place. The catheter on the left appears to be positioned in the superior aspect the left kidney. The catheter on the right is probably positioned in the right r enal pelvis and extends into the urinary bladder. The left-sided catheter shows several calcification s along the distal course of the catheter near the urinary bladder. These apparently represent multip le stones in the distal left ureter. Bowel gas pattern is normal. No free air. Visualized organ scotty ns are otherwise intact. There are multiple small calcifications superimposing the left renal silhoue tte which most likely represent residual renal stones. XR/XR KUB [id number] IMPRESSION: 1. Left-sided ureteral catheter shows numerous calcifications along the distal aspect of the catheter most likely in the distal left ureter. The superior aspe ct of the catheter is positioned overlying the upper pole the left kidney. Ther e are additional calcifications superimposing the left renal silhouette. 2. A right-sided ureteral catheter appears to be in appropriate position. 3. No acute abdominal process.
== END 2020-07-29 14:46 | disposition home or self-care (01) ==
LOC: RAD 14:47
PROVIDERS: PCP Family Medicine; Visit Provider Urology
DX: N20.1 Calculus of ureter (principal); Z96.0 Presence of urogenital implants
CPT/HCPCS: 74018; 81003

== ENCOUNTER 2021-02-03 07:02 | Outpatient (CLI) | payer BC, MEDICAID, SELFPAY ==
--- NOTE | 2021-02-03 10:00 | XRR_ITS ---
PROCEDURE INFORMATION: Exam: XR Abdomen Exam date and time: 02/03/2021 10:00 AM Age: 35 years old Clinical indication: Condition or disease; Kidney or ureter condition; Calculus (stone) in kidney; Prior surgery; Patient HX: History--hx of kidney stones-stents bilat; Additional info: Urolithiasis TECHNIQUE: Imaging protocol: XR of the abdomen. Views: Frontal supine view of the abdomen. 1 View. COMPARISON: CR XR KUB [id number] 07/29/2020 3:02 PM FINDINGS: Tubes, catheters and devices: Bilateral internal ureteral stents in good position. Gastrointestinal tract: Normal. No bowel dilation. Organs: Left distal ureteral calcifications on the left decreased in volume since comparison. Bones/joints: Unremarkable. XR/XR KUB [id number] IMPRESSION: There is left distal ureterolithiasis, although mildly reduced calcium volume from prior.
== END 2021-02-03 07:03 | disposition home or self-care (01) ==
LOC: RAD 07:05
PROVIDERS: PCP Family Medicine; Visit Provider Urology
DX: N20.1 Calculus of ureter (principal)
CPT/HCPCS: 74018; 81003

== ENCOUNTER → 2021-02-08 00:01 | Outpatient (BNVA) | payer BC, MEDICAID, SELFPAY | PROVIDERS: PCP Family Medicine; Visit Provider Urology | DX: N20.1 Calculus of ureter (principal); Z20.822 Contact with and (suspected) exposure to COVID-19 | CPT/HCPCS: 87635 ==

== ENCOUNTER 2021-02-15 06:35 | Day surgery (SDC) | payer BC, MEDICAID, SELFPAY ==
[2021-02-11 12:37] VITALS: BMI 21.2
[2021-02-15] VITALS (10 sets, daily range): BP systolic 114–138; BP diastolic 55–77; PULSE 65–98; RESP 14–20; TEMP 36.3–36.8; O2SAT 98–100
--- NOTE | 2021-02-15 06:36 | XRR_ITS ---
PROCEDURE INFORMATION: Exam: XR Abdomen Exam date and time: 02/15/2021 6:36 AM Age: 35 years old Clinical indication: Screening exam; Other: Preop eswl; Prior surgery; Surgery type: Tubal, kidney stents TECHNIQUE: Imaging protocol: XR of the abdomen. Views: Frontal supine view of the abdomen. 1 View. COMPARISON: CR XR KUB [id number] 02/03/2021 7:10 AM FINDINGS: Tubes, catheters and devices: Bilateral abdominal ureteral stents proximal pigtail symmetric and in similar position at the medial renal margin bilaterally. Distal pigtails overlie the pelvis left of midline. Gastrointestinal tract: Normal. No bowel dilation. Organs: Numerous suspected ureteral calculi distally on the left remain. Bones/joints: Unremarkable. XR/XR KUB [id number] IMPRESSION: 1. Bilateral ureteral stents in similar position. 2. Suspect persistent distal left ureteral calculi similar with a slightly smaller suspected calculus more distal to the larger confluent calcifications.
[2021-02-15] MEDS: sodium chloride 0.9% 1,000 ML 30 ML IV (07:16)
--- NOTE | 2021-02-15 07:33 | ANES.PREANE2 ---
Pre-Anesthetic Assessment Pre-Anesthetic Assessment: Height/Weight: Height 1.6 m Weight 54.431 kg Temp Pulse Resp BP Pulse Ox 97.7 F 65 20 H 114/75 100 02/15/21 07:10 02/15/21 07:10 02/15/21 07:10 02/15/21 07:10 02/15/21 07:10 Preop Diagnosis: Retained ureteral stents, Left ureteral calculi Proposed Procedure: Operation Date: 02/15/21 08:45 Proposed Procedures p Cystoscopy [id number](Not Applicable) - Mariano Gunn MD s ESWL(Left) - Mariano Gunn MD s Ureteroscopy(Left) - Mariano Gunn MD s Ureteral Stent Exchange(Left) - Mariano Gunn MD Was Beta Alcira taken within 24 hours: N/A Was Clonidine taken within 24 hours: N/A Last intake: Intake Last Liquid Date 02/14/21 Last Liquid Time 23:30 Last Solid Date 02/14/21 Last Solid Time 20:35 Social: Social History: Alcohol and Tobacco Packs per day: .75 Exam: Pre-Anes Outpt Exam: alert, oriented x 3, clear to auscultation bilaterally and regular rate & rhythm Airway: Submandibular: WNL Cervical ROM: WNL MP: 1 Dentition: Chipped History/ROS: No significant history except as noted Pulmonary: Pulmonary: None reported CV/HEM: CV/HEM: None reported : Comments: Renal stones Right renal atrophy Hepatic: Hepatic: None reported GI: GI: None reported Metabolic: Metabolic: None reported Musc/skel: Musc/skel: None reported Neuropsych: Neuropsych: None reported Anesthetic Plan: ASA status: 2 Anesthesia: Anesthesia Evaluation and General Risk of > 500 ml blood loss (7ml/kg in children): No Meds/Allergies Current Medications: Current Medications Generic Name Dose Route Start Last Admin Trade Name Freq PRN Reason Stop Dose Admin Sodium Chloride 1,000 mls @ 30 ml s/hr 02/15/21 06:45 02/15/21 07:16 Sodium Chloride 0.9% IV 02/16/21 06:44 30 mls/hr .Q24H MOLLY Administration PFSH Anesthesia PFSH: Medical History Intrauterine Left ureteral calculus Retained ureteral stent Right renal atrophy Urolithiasis Surgical History History of lithotripsy Family History Other CAD (coronary artery disease) Cancer Diabetes Social History Smoking and tobacco status: current every day smoker Alcohol intake: never Adopted: No Caregiver/support person: No Lives independently: No Household members: spouse Marital status: Current occupational status: unemployed Female Reproductive History: Date of last menstrual period: 12/27/20 Data Anesthesia Cardiac Studies: No Data to Display
[2021-02-15 07:57] LABS: OR HCG Qualitative Urine Negative (Negative)
--- NOTE | 2021-02-15 08:08 | P.HPUD_ITS ---
Surgery/Procedure H&P Update DATE OF PROCEDURE: February 15, 2021 DATE H&P PERFORMED: 02/03/22 H&P UPDATE INFORMATION: I have reviewed H&P completed within last 30 days, I have examined patient prior to procedure, No changes to prior documentation and H&P is in [facility] EMR on date indicated CHANGES TO PREVIOUS DOCUMENTATION: Reviewed the films with her again. Plan will be to treat the proximal end of the left stent, fragment any distal calcifi cations on the stent, treat the left ureteral distal stones with shockwave or laser or just withdrawal pending ease of stent removal. We also discussed trying to remove the RIGHT ureteral stent without ESWL to the proximal end which I think is possible but if it is difficult to uncurl then forego any further treatment today and after she recovers from this initial treatment then moved towards ESWL again on the right stent. Reviewed that I would not recommend treating bilaterally. She was still need further work-up for the severe right renal atrophy as to the cause and salvageability of the kidney. PREOP DIAGNOSIS: Retained ureteral stents, Left ureteral calculi PLANNED PROCEDURE: Operation Date: 02/15/21 08:45 Proposed Procedures p Cystoscopy [id number](Not Applicable) - Mariano Gunn MD s ESWL(Left) - Mariano Gunn MD s Ureteroscopy(Left) - Mariano Gunn MD s Ureteral Stent Exchange(Left) - Mariano Gunn MD
--- NOTE | 2021-02-15 08:17 | P.OP_ITS ---
Operative Report Date of procedure: February 15, 2021 Pre-op Diagnosis: Retained ureteral stents, Left ureteral calculi Post-op diagnosis: same Procedure Done: 1. Extracorporeal shockwave lithotripsy LEFT renal (proximal ureteral stent encrustation) 2. Left ureteroscopy, laser lithotripsy (no stent) left distal ureteral stones. These were not treated with ESWL 3. Removal of BILATERAL ureteral stents 4. Right retrograde ureteropyelogram Implants: None Pathology: Stone fragments Surgeon: Luis A Gas Compressor Turbine Operator: Avi Anesthesia: General Estimated blood loss: Minimal Urine output: Not measured Complications: None Findings: 1 left stent required ESWL to the proximal curl in order to withdraw the stent atraumatically. 2. 2 of the 3 stones in the left distal ureter withdrawn without fragmentation the third stone that could not be withdrawn based on size was easily fragmented with a 200 ?m thulium superpulse laser fiber and the fragments were withdrawn with grasping forceps. No remaining fragments in the ureter at final inspection. No stent was left indwelling 3. The right ureteral stent was able to be removed without treatment of the stent for encrustation. 4. Retrograde pyelogram on the right side demonstrated evidence of a right UPJ obstruction as well as anticipated based on her last imaging. Condition: stable Disposition: PACU Brief History: Mrs. Wilks is a 35-year-old white female with a history of recurrent stone disease frequently will and generally when . About 6 months ago she was discovered to have a large stone in her left distal ureter causing traction and severe right hydronephrosis that appeared to be new and not related to a stone. She has had an adequate work-up for her baseline status but multiple interventions during multiple pregnancies for recurrent obstructive uropathy related to stones. Has not been compliant in keeping her follow-up appointments between pregnancies so imaging and baseline assessment has been less than ideal. She recently returned with bilateral ureteral stents indwelling from the last intervention. There appear to be some distal calcification of the stents and not a significant amount approximately. She still had a retained stone in the area of the left distal ureter. Plans were to proceed with removal of the left ureteral stent with expectation of ESWL to the proximal curl, removal of the left ureteral fragments with ureteroscopy, possible fragmentation, and attempted removal of the RIGHT ureteral stent without utilizing ESWL. If the right ureteral stent was too calcified to remove without treated with ESWL that would be planned in another date to avoid bilateral lithotripsy to the kidneys. If the right stent comes out adequately then the plan would be to perform a retrograde ureteropyelogram to reassess status of the ureter and collecting system based on previous imaging showing severe dilation Patient has been counseled again on the importance of compliance so that we can finish this work-up. Procedure: After routine preoperative evaluation examination and obtaining of informed consent she was taken to the operating suite on 02/15/2021 where general anesthesia was administered without difficulty after appropriate timeout was performed, SCDs confirmed to be functioning, preoperative antibiotics administered, beta-gigi protocol confirmed. Prepped and draped in usual sterile fashion in dorsolithotomy position paying careful attention to avoiding pressure points. The shock head was positioned such that the proximal aspect of the LEFT stent was at the focal point. Treatment was initiated at intensity of 1 advanced an intensity of 4 at a rate of 60 with a total of approximately 500 shocks administered. After treatment of the LEFT ureteral stent proximal curl a cystoscope was passed and a flexible tip guidewire was then advanced up the left ureter next to the stent and secured to the drapes. Flexible tip grasping forceps were utilized to withdraw the tip of the stent through the urethral meatus and a second wire was passed through the stent without difficulty up the ureteral stent with uncurling of the proximal aspect of the stent was removed. The wire was removed and a 7.5 Albanian offset semirigid ureteroscope was then advanced up the left ureter and the stones were encountered in the expected position in the distal ureter. 2 fragments were able to be removed with a grasping forceps without difficulty. The remaining fragment was too large to pull out without excessive tension and therefore was fragmented with a 200 ?m thulium superpulse laser fiber into fragments that were removed with grasping forceps with multiple passages of the scope. Final inspection revealed normal nicely dilated not very inflamed ureter all the way to the UPJ. No stent was left indwelling in the left side. Attention was then directed to the right ureteral stent. A flexible guidewire was passed up the right ureter next to the stent, grasping forceps were utilized to secure the stent and withdraw just to the meatus and then a second guidewire was passed up the ureteral stent and with some manipulation the proximal aspect was uncurled. The stent was then easily withdrawn over the guidewire which was then removed. An open-ended ureteral catheter was advanced over the wire secured to the drapes up into the renal pelvis and contrast was injected showing of markedly dilated collecting system as expected based on previous imaging. The catheter was withdrawn to the proximal ureter and contrast was injected and it showed evidence consistent with right UPJ obstruction configuration with a narrowed segment in addition to a high insertion site of the proximal right ureter into the renal pelvis. The ureter distal to this point was normal without any filling defect. The catheter was removed. The bladder was cleared of all the fragments of the been dropped into the bladder from the left ureter via an EDUonGo evacuator and final inspection revealed no other stones, good efflux of both ureters. It was decided to not leave a stent in the right ureter and work her up for right UPJ obstruction soon with a nuclear medicine Lasix renogram. She was awakened in the operating room and returned to the recovery room in stable condition. PLANS: 1. Anticipate discharge from outpatient surgery 2. We will schedule an outpatient Lasix renogram with follow-up for evaluation of what appears to be a RIGHT UPJ OBSTRUCTION
[2021-02-15] MEDS: levofloxacin-dextrose 5 % 500 MG/100 ML PREMIX 100 MG IV (08:30)
[2021-02-15] MEDS: ondansetron 2 mg/ML SDV 2 mL 4 MG IVP ×2 (10:20→10:55)
[2021-02-15] MEDS: oxyCODONE-APAP 5-325 mg Tablet 1 TAB PO (11:01)
--- NOTE | 2021-02-15 13:43 | ANE.PACU2 ---
Inpatient post-anesthesia follow up: Airway intact: Yes Vital signs: Temperature 97.6 F Pulse Rate 65 Respiratory Rate 18 Blood Pressure 121/64 Pulse Oximetry 99 Oxygen Delivery Me thod Room Air Oxygen Flow Rate 0 Fraction of Inspir ed Oxygen Hydration adequate: Yes Nausea and vomiting: Yes (Improved with treatment) Pain level: 4 Mental status: Baseline
== END 2021-02-15 11:30 | disposition home or self-care (01) ==
PROVIDERS: Anesthesiology; PCP Family Medicine; Visit Provider Urology
PROC: 0TJB8ZZ Inspection of Bladder, Via Natural or Artificial Opening Endoscopic (ICD-10-PCS; CPT 52000; principal; 2021-02-15 08:35)
PROC: (CPT 50590; 2021-02-15 08:35)
PROC: 0TJ98ZZ Inspection of Ureter, Via Natural or Artificial Opening Endoscopic (ICD-10-PCS; CPT 52351; 2021-02-15 08:35)
PROC: (CPT 50590; 2021-02-15 08:35)
PROC: (CPT 50590; 2021-02-15 08:35)
PROC: (CPT 74420; 2021-02-15 08:35)
PROC: (CPT 52310; 2021-02-15 08:35)
DX: N20.1 Calculus of ureter (principal); Z96.0 Presence of urogenital implants; F17.210 Nicotine dependence, cigarettes, uncomplicated
CPT/HCPCS: 50590; 52353; 74018; 81025; 82365; 84703; 88300; 96365; J1100; J1956; J2250; J2405; J2704; J3010; J7030; Q9967

== ENCOUNTER 2021-03-16 09:38 | Outpatient (CLI) | payer BC, MEDICAID, SELFPAY ==
--- NOTE | 2021-03-16 09:44 | NM_ITS ---
WS: [id number] NUCLEAR MEDICINE RENAL SCINTIGRAPHY. INDICATION: Right-sided kidney problems. Ureteral calculus TECHNIQUE: Nuclear medicine renal scintigraphy with 11.6 mCi DTPA. 20 mg of Lasix administered at 10 minutes. FINDINGS: LEFT: Mild left hydronephrosis with relatively normal perfusion. Mild left pelvocaliectasis. Time to peak left kidney 4.8 minutes with normal excretion before and after diuretic administration. RIGHT: Marked right hydronephrosis. This can be further evaluated with ultrasound. Delayed radiotrace r uptake with persistent renal cortical activity with no significant excretion pre- and postdiuretic administration. Time to peak 30.8 minutes. NM/NM renal flow w pharm [id number] IMPRESSION: 1. Moderate to severe RIGHT hydronephrosis. This would be better evaluated wit h ultrasound. 2. No significant excretion RIGHT kidney pre- and postdiuretic administration. 3. Normal functioning LEFT kidney with mild hydronephrosis and mild pelvocalie ctasis.
== END 2021-03-16 09:39 | disposition home or self-care (01) ==
PROVIDERS: PCP Family Medicine; Visit Provider Urology
DX: N20.1 Calculus of ureter (principal); N13.30 Unspecified hydronephrosis
CPT/HCPCS: 78708; 81003; A9539

== ENCOUNTER → 2023-07-11 09:52 | Outpatient (BNVA) | payer BC, MEDICAID, SELFPAY | PROVIDERS: PCP Family Medicine; Visit Provider Family Medicine | DX: F17.200 Nicotine dependence, unspecified, uncomplicated | CPT/HCPCS: 80053; 84439; 84443; 85025 ==

== ENCOUNTER → 2023-09-13 10:08 | Outpatient (BNVA) | payer MEDICAID, SELFPAY | PROVIDERS: PCP Family Medicine; Visit Provider Specialist | DX: M25.562 Pain in left knee (principal); G89.29 Other chronic pain; M25.362 Other instability, left knee | CPT/HCPCS: 73560; 73565 ==